=== PATIENT | female | born 1955 | race Caucasian/White ===

== ENCOUNTER → 2017-08-31 | Outpatient (CLI) | payer OTHER ==
--- NOTE | 2017-08-31 09:11 | MM ---
Reason for exam: additional evaluation requested from prior study. Last mammogram was performed 1 year and 5 months ago. History: Patient is postmenopausal and has history of breast cancer at age 50. Excisional biopsy of the left breast, 2006. Mastectomy of the right breast, 2005. Took antineoplastic for 5 years beginning at age 50. Physical Findings: Nurse did not find any significant physical abnormalities on exam. MG Diagnostic Mammo LT w CAD CC and MLO view(s) were taken of the left breast. Prior study comparison: April 04, 2016, left breast MG 3d diag mammo w/cad LT. May 16, 2014, left breast MG diagnostic mammo LT w CAD. The breast tissue is heterogeneously dense. This may lower the sensitivity of mammography. There is no discrete abnormality. These results were verbally communicated with the patient and result sheet given to the patient on 08/31/17. ASSESSMENT: Negative, BI-RAD 1 RECOMMENDATION: Follow-up diagnostic mammogram of the left breast in 1 year.
== END | disposition home or self-care (01) ==
LOC: RADMAMWWP 07:01
PROVIDERS: ATTEND Internal Medicine
DX: Z08 Encounter for follow-up examination after completed treatment for malignant neoplasm (principal); Z85.3 Personal history of malignant neoplasm of breast
CPT/HCPCS: 77065

== ENCOUNTER 2018-02-21 08:27 | Day surgery (SDC) | payer OTHER ==
[2018-02-19 15:20] VITALS: BMI 28.3
[~2018-02-21 08:27] MED LIST: LACTATED RINGERS 1,000 ML IV SCH; LIDOCAINE 1% 20 ML VIAL (10MG/ML) FOR IV START INTRADERMA PRN
[2018-02-21 09:01] VITALS: TEMP 98.4
[2018-02-21 09:06] LABS: Glucose,Whole Blood 133 mg/dL (75-99)
[2018-02-21] MEDS ORDERED: PROPOFOL 10 MG/ML 20 ML VIAL IV ONE (09:21)
--- NOTE | 2018-02-21 09:41 | P.PCN ---
Date of Procedure: 02/21/18 Procedure(s) Performed: BRIEF HISTORY: Patient is a 13-[id number]-year-old pleasant female, scheduled for an elective colonoscopy as a part of screening for colorectal neoplasia. She is family history of colon cancer diagnosed in her mother at age 50. PROCEDURE PERFORMED: Colonoscopy. PREOPERATIVE DIAGNOSIS: Screening for colon cancer/family history of colon cancer. IV sedation per Anesthesia. PROCEDURE: After informed consent was obtained, the patient, was brought into the endoscopy unit. IV sedation was administered by Anesthesia under continuous monitoring. Digital rectal examination was normal. Initially the Olympus CF- 160 flexible video colonoscope was then inserted in the rectum, gradually advanced into the cecum without any difficulty. Careful examination was performed as the scope was gradually being withdrawn. Ileocecal valve and the appendiceal orifice were visualized and appeared normal. Prep was excellent. Mucosa of the cecum, ascending colon, transverse colon, descending colon, sigmoid colon, and rectum appeared normal. Scattered sigmoid diverticulosis seen. Retroflexion was performed in the rectum and no lesions were seen. The patient tolerated the procedure well. IMPRESSION: Normal-appearing colon from rectum to cecum with no evidence of colorectal neoplasia. Scattered sigmoid diverticulosis RECOMMENDATIONS: Findings of this examination were discussed with the patient is well as her family.. She was advised to have a repeat screening colonoscopy in 5 is now because of the family history of colon cancer
[2018-02-21 09:54] LABS: Glucose,Whole Blood 126 mg/dL (75-99)
[2018-02-21 10:05] VITALS: BP 112/61; PULSE 61; RESP 18
== END 2018-02-21 10:31 | disposition home or self-care (01) ==
LOC: ORWHC2ENDO 08:27
PROVIDERS: ATTEND Internal Medicine Gastroenterology
DX: Z12.11 Encounter for screening for malignant neoplasm of colon (principal); K57.30 Diverticulosis of large intestine without perforation or abscess without bleeding; Z80.0 Family history of malignant neoplasm of digestive organs; I10 Essential (primary) hypertension; E78.5 Hyperlipidemia, unspecified; J44.9 Chronic obstructive pulmonary disease, unspecified; E11.9 Type 2 diabetes mellitus without complications; E07.9 Disorder of thyroid, unspecified; K21.9 Gastro-esophageal reflux disease without esophagitis; F17.210 Nicotine dependence, cigarettes, uncomplicated; Z79.84 Long term (current) use of oral hypoglycemic drugs; Z79.82 Long term (current) use of aspirin; Z79.890 Hormone replacement therapy; Z79.899 Other long term (current) drug therapy; Z91.048 Other nonmedicinal substance allergy status
CPT/HCPCS: J2704; G0105

== ENCOUNTER → 2019-12-09 | Outpatient (CLI) | payer MEDICARE, OTHER ==
--- NOTE | 2019-12-10 09:32 | MM ---
Reason for exam: additional evaluation requested from prior study. Last mammogram was performed 2 years and 3 months ago. History: Patient is postmenopausal and has history of breast cancer at age 50. Excisional biopsy of the left breast, 2006. Mastectomy of the right breast, 2005. Took antineoplastic for 5 years beginning at age 50. Physical Findings: Nurse did not find any significant physical abnormalities on exam. MG 3D Diag Mammo W/Cad LT CC and MLO view(s) were taken of the left breast. Prior study comparison: August 31, 2017, left breast MG diagnostic mammo LT w CAD. April 04, 2016, left breast MG 3d diag mammo w/cad LT. The breast tissue is heterogeneously dense. This may lower the sensitivity of mammography. There is no discrete abnormality. No significant new findings when compared with previous films. These results were verbally communicated with the patient and result sheet given to the patient on 12/09/19. ASSESSMENT: Negative, BI-RAD 1 RECOMMENDATION: Follow-up diagnostic mammogram of the left breast in 1 year.
== END | disposition home or self-care (01) ==
LOC: RADMAMWWP 07:02
PROVIDERS: ATTEND Internal Medicine
DX: Z85.3 Personal history of malignant neoplasm of breast (principal)
CPT/HCPCS: 77065; G0279; 77061

== ENCOUNTER → 2019-12-12 | Outpatient (CLI) | payer MEDICARE ==
--- NOTE | 2019-12-12 16:38 | BD ---
EXAMINATION TYPE: Axial Bone Density DATE OF EXAM: 12/12/2019 COMPARISON: 04/05/2016 CLINICAL HISTORY: 64-year-old female disorder bone density and structure Height: 64 Weight: 177.4 FRAX RISK QUESTIONS: Alcohol (3 or more units per day): no Family History (Parent hip fracture): no Glucocorticoids (More than 3mos): no (Ex: prednisone, prednisolone, methylprednisolone, dexamethasone, and hydrocortisone). History of Fracture in Adulthood: no Secondary Osteoporosis: 1. Type 1 Diabetes: no 2. Hyperthyroidism: no 3. Menopause before 45: no 4. Malnutrition: no 5. Chronic liver disease: no Rheumatoid Arthritis: no Current Tobacco Use: yes RISK FACTORS HISTORY OF: Family History of Osteoporosis: no Active: yes Diet low in dairy products/other sources of calcium: yes Postmenopausal woman: age 46 MEDICATIONS: Thyroid Medications: synthroid How Lon years Additional History: EXAM MEASUREMENTS: Bone mineral densitometry was performed using the [employer] System. Bone mineral density as measured about the Lumbar spine is: ----- L1-L4(G/cm2): 1.057 T Score Values are as follows: ----- L2: -0.8 ----- L3: -0.8 ----- L4: -1.3 ----- L1-L4: -1.0 Bone mineral density has: decreased -1.5 % since study of: 04.05.2016 Bone mineral density about the R hip (g/cm2): 0.985 Bone mineral density about the L hip (g/cm2): 0.997 T Score values are as follows: -----R Neck: -0.4 -----L Neck: -0.3 -----R Total: 0.8 -----L Total: 0.6 Bone mineral density has: decreased -1.6 % since study of: 04.05.2016 IMPRESSION: Normal (Values between +1 and -1 indicate normal bone mass). However, note that measurements border on osteopenia at the lumbar spine. Consider repeating this study in 5 years or sooner if there is some new clinical indication. NOTE: T-SCORE=SD OF THE YOUNG ADULT MEAN.
== END | disposition home or self-care (01) ==
LOC: RADBDWWP 15:06
PROVIDERS: ATTEND Internal Medicine
DX: M89.9 Disorder of bone, unspecified (principal)
CPT/HCPCS: 77080

== ENCOUNTER → 2021-02-23 | Outpatient (CLI) | payer MEDICARE ==
--- NOTE | 2021-02-23 15:45 | CTL ---
EXAMINATION TYPE: CT Low Dose Lung DATE OF EXAM ORDERED: 02/23/2021 HISTORY: Long-term tobacco use. . Lung cancer screening CT DLP: 84.[address] CTDI: 2.5 mGy Automated exposure control for dose reduction was used. SCREENING VISIT: Baseline. COMPARISON: None. TECHNIQUE: Low dose computed tomography scan was performed through the chest at 1 mm thick sections a nd reconstructed images in the coronal plane at [address] DIAGNOSTIC QUALITY: Satisfactory FINDINGS: LUNG NODULES: Present, detailed below: Incidental 2 to 3 mm calcified right middle lobe nodule or benign granuloma axial image 199. LUNGS: COPD: Severity: Mild Fibrosis: Severity: Mild to moderate right greater than left biapical Lymph nodes: No greater than 1 cm Other findings: Non- RIGHT PLEURAL SPACE: Effusion: None Calcification: None Thickening: Mild right apical extending posteriorly and inferiorly Pneumothorax: None LEFT PLEURAL SPACE: Effusion: None Calcification: None Thickening: None Pneumothorax: None HEART: Heart Size: Normal Coronary calcification: Moderate Pericardial effusion: None OTHER FINDINGS: Upper abdomen: Small size hiatal hernia. Cholecystectomy clips. Bony thorax: None Supraclavicular region: Asymmetric right thyroid lobe prominencer Other: Send the aorta measures up to 3.8 cm in diameter. Right breast is surgically absent IMPRESSION: No suspicious greater than [address] LUNG RAD AND CT CHEST RECOMMENDATION: Lung-Rad 2 Benign Appearance or Behavior: Continue annual sc reening with LDCT in 12 months. S Modifier (other clinically significant findings): None
== END | disposition home or self-care (01) ==
LOC: RADCTMAIN 15:06
PROVIDERS: ATTEND Internal Medicine
DX: Z12.2 Encounter for screening for malignant neoplasm of respiratory organs (principal); Z72.0 Tobacco use
CPT/HCPCS: 71271

== ENCOUNTER 2021-04-23 06:31 | Day surgery (SDC) | payer MEDICARE ==
[~2021-04-23 06:31] MED LIST changes: -LIDOCAINE 1% 20 ML VIAL (10MG/ML) FOR IV START INTRADERMA PRN
[2021-04-23 06:55] LABS: Glucose,Whole Blood 144 mg/dL (75-99)
[2021-04-23 06:58] VITALS: TEMP 96.8
[2021-04-23] MEDS ORDERED: PROPOFOL 10 MG/ML 20 ML VIAL IV ONE (07:00)
--- NOTE | 2021-04-23 07:23 | P.PCN ---
Date of Procedure: 04/23/21 Procedure(s) Performed: BRIEF HISTORY: Patient is a 65-year-old pleasant white female scheduled for an elective colonoscopy as a part of screening for colon cancer and family history of colon cancer. Her father was diagnosed with colon cancer at age 65. PROCEDURE PERFORMED: Colonoscopy. PREOPERATIVE DIAGNOSIS: Screening for colon cancer/family history of colon cancer. IV sedation per Anesthesia. PROCEDURE: After informed consent was obtained, the patient, was brought into the endoscopy unit. IV sedation was administered by Anesthesia under continuous monitoring. Digital rectal examination was normal. Initially the Olympus CF-160 flexible video colonoscope was then inserted in the rectum, gradually advanced into the cecum without any difficulty. Careful examination was performed as the scope was gradually being withdrawn. Ileocecal valve and the appendiceal orifice were visualized and appeared normal. Prep was excellent. Mucosa of the cecum, ascending colon, transverse colon, descending colon, sigmoid colon, and rectum appeared normal. Retroflexion was performed in the rectum and no lesions were seen. The patient tolerated the procedure well. IMPRESSION: Normal-appearing colon from rectum to cecum with no evidence of colitis or colorectal neoplasia . RECOMMENDATIONS: Findings of this examination were discussed with the patient as well as a family. She was advised to have a repeat screening colonoscopy in 5 years because of family history of colon cancer
[2021-04-23 07:38] VITALS: BP 109/68; PULSE 51; RESP 14
== END 2021-04-23 08:13 | disposition home or self-care (01) ==
LOC: ORWHC2ENDO 06:31
PROVIDERS: ATTEND Internal Medicine Gastroenterology
DX: Z12.11 Encounter for screening for malignant neoplasm of colon (principal); Z80.0 Family history of malignant neoplasm of digestive organs
CPT/HCPCS: 45378; J2704

== ENCOUNTER → 2021-08-03 | Outpatient (CLI) | payer MEDICARE ==
--- NOTE | 2021-08-03 11:58 | MM ---
Reason for exam: additional evaluation requested from prior study. Last mammogram was performed 1 year and 8 months ago. History: Patient is postmenopausal and has history of breast cancer at age 50. Excisional biopsy of the left breast, 2006. Mastectomy of the right breast, 2005. Took antineoplastic for 5 years beginning at age 50. Physical Findings: A clinical breast exam by your physician is recommended on an annual basis and results should be correlated with mammographic findings. MG 3D Diag Mammo W/Cad LT CC and MLO view(s) were taken of the left breast. Prior study comparison: December 09, 2019, left breast MG 3d diag mammo w/cad LT. August 31, 2017, left breast MG diagnostic mammo LT w CAD. There are scattered fibroglandular densities. There are benign appearing round, vascular calcifications in the left breast. There is no discrete abnormality. These results were verbally communicated with the patient and result sheet given to the patient on 08/03/21. ASSESSMENT: Benign, BI-RAD 2 RECOMMENDATION: Follow-up diagnostic mammogram of the left breast in 1 year.
== END | disposition home or self-care (01) ==
LOC: RADMAMWWP 09:36
PROVIDERS: ATTEND Internal Medicine
DX: R92.8 Other abnormal and inconclusive findings on diagnostic imaging of breast (principal); Z86.000 Personal history of in-situ neoplasm of breast; Z78.0 Asymptomatic menopausal state
CPT/HCPCS: 77065; G0279; 77061

== ENCOUNTER → 2021-11-02 | Outpatient (CLI) | payer MEDICARE ==
--- NOTE | 2021-11-02 15:41 | US ---
EXAMINATION TYPE: US thyroid st tissue head/neck DATE OF EXAM: 11/02/2021 COMPARISON: NONE CLINICAL HISTORY: 66-year-old female E04.9 Thyroid goiter. Patient with a history of left thyroidecto my, on meds for thyroid TECHNIQUE: Multiple sonographic images of the thyroid gland are obtained. FINDINGS: GLAND SIZE: Right Lobe: 4.8 x 1.3 x 2.0 cm Overall Parenchyma: heterogenous Left Lobe: Surgically absent Isthmus Thickness: 0.5 cm NODULES RIGHT: # of nodules measured on right: 0 LEFT: surgically absent, no obvious residual tissue seen on today's exam ISTHMUS: # of nodules measured in the isthmus: 0 Bilateral neck scanned, no evidence of lymphadenopathy. IMPRESSION: 1. Status post left thyroidectomy. 2. The remainder shows heterogeneous glandular parenchyma, likely relating to goiter. No discrete nod ules.
== END | disposition home or self-care (01) ==
LOC: RADUSWWP 12:28
PROVIDERS: ATTEND Internal Medicine
DX: E89.0 Postprocedural hypothyroidism (principal)
CPT/HCPCS: 76536

== ENCOUNTER 2022-07-03 04:14 | Observation (INO) | payer MEDICARE ==
[2022-07-03] MEDS ORDERED: SODIUM CHLORIDE 0.9% 500 ML 500 ML IV STA (04:25)
--- NOTE | 2022-07-03 04:26 | ED ---
Fall HPI - General Stated Complaint: SYNCOPE Time Seen by Provider: 07/03/22 04:25 Source: RN notes reviewed, old records reviewed Limitations: no limitations - History of Present Illness Initial Comments: This is a 67-year-old female DF for evaluation. Today she presents after a fall from standing, this was proceeded by a syncopal event which occurred when she got out of bed this morning. Patient states he did give Her to give her some of his sleeping medication prior to her going to bed. 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 Witnessed: no Place Fall Occurred: home Loss of Consciousness: none Prolonged Down Time?: no Symptoms Prior to Fall: none Location: head, face Severity: mild Severity scale (1-10): 2 Context: tripped/slipped, history of frequent falls, other (Syncope) Associated Symptoms: denies - Related Data Home Medications Medication Instructions Recorded Confirmed Atorvastatin [Lipitor] 10 mg PO HS 11/07/13 04/21/21 PARoxetine HCL [Paxil] 20 mg PO HS 11/07/13 04/21/21 atenoloL [Tenormin] 25 mg PO HS 11/07/13 04/21/21 metFORMIN HCL [Glucophage] 500 mg PO BID 02/19/18 04/21/21 Levothyroxine Sodium 112 mcg PO DAILY 04/21/21 04/21/21 Allergies Allergy/AdvReac Type Severity Reaction Status Date / Time adhesive Allergy Unknown Rash/Hives Verified 04/23/21 06:46 Review of Systems ROS Statement: Those systems with pertinent positive or pertinent negative responses have been documented in the HPI. ROS Other: All systems not noted in ROS Statement are negative. Past Medical History Past Medical History: Cancer, Diabetes Mellitus, GERD/Reflux, Hyperlipidemia, Hypertension, Osteoarthritis (OA), Thyroid Disorder Additional Past Medical History / Comment(s): HX BREAST CANCER ,VERTIGO,VARICOSE VEINS, HX OF GOITER WITH SURGERY., HX THYROID NODULE. History of Any Multi-Drug Resistant Organisms: None Reported Past Surgical History: Breast Surgery, Section, Cholecystectomy, Tubal Ligation Additional Past Surgical History / Comment(s): RT MASTECTOMY, GOITER REMOVED. COLONOSCOPY Past Anesthesia/Blood Transfusion Reactions: Postoperative Nausea & Vomiting (PONV) Smoking Status: Current every day smoker - Past Family History Mother Family Medical History: Cancer, CVA/TIA Additional Family Medical History / Comment(s): THROAT CA Father Family Medical History: Cancer Additional Family Medical History / Comment(s): CA COLON, PANCREATIC CANCER Brother(s) Family Medical History: Cancer Additional Family Medical History / Comment(s): BRAIN CA General Exam General appearance: alert, in no apparent distress Head exam: Present: normocephalic, normal inspection. Absent: atraumatic (Small laceration above left eyelid) Eye exam: Present: normal appearance, PERRL, EOMI. Absent: scleral icterus, conjunctival injection, periorbital swelling ENT exam: Present: normal exam, mucous membranes moist Neck exam: Present: normal inspection. Absent: tenderness, meningismus, lymphadenopathy Respiratory exam: Present: normal lung sounds bilaterally. Absent: respiratory distress, wheezes, rales, rhonchi, stridor Cardiovascular Exam: Present: regular rate, normal rhythm, normal heart sounds. Absent: systolic murmur, diastolic murmur, rubs, gallop, clicks GI/Abdominal exam: Present: soft, normal bowel sounds. Absent: distended, tenderness, guarding, rebound, rigid Extremities exam: Present: normal inspection, full ROM, normal capillary refill. Absent: tenderness, pedal edema, joint swelling, calf tenderness Back exam: Present: normal inspection Neurological exam: Present: alert, oriented X3, CN II-XII intact Psychiatric exam: Present: normal affect, normal mood Skin exam: Present: warm, dry, intact, normal color. Absent: rash Course Vital Signs 07/03/22 07/03/22 07/03/22 04:39 04:45 05:00 Pulse Rate 49 L 46 L Pulse Rate [ 48 L Boat Deckhand ] Respiratory 16 16 Rate Blood Pressure 102/58 113/59 O2 Sat by Pulse 98 98 Oximetry 07/03/22 06:00 Pulse Rate 51 L Pulse Rate [ Boat Deckhand ] Respiratory 16 Rate Blood Pressure 142/70 O2 Sat by Pulse 98 Oximetry - Reevaluation(s) Reevaluation #1: 07/03/22 07:44 Medical records reviewed Reevaluation #2: 07/03/22 07:44 patient has no recurrent syncope here in the ER Reevaluation #3: 07/03/22 07:44 Patient informed results questions are answered Reevaluation #4: 07/03/22 07:45 Differential Syncope: Valvular disease, hypertrophic cardiomyopathy, pulmonary embolism, tamponade, tachycardia, bradycardia, MS, hypovolemia, hemorrhage, dissection, anemia, intracranial hemorrhage, seizure, hypoglycemia, carbon monoxide poisoning, this is not meant to be an all-inclusive list. Reevaluation #5: 07/03/22 07:45 Was pt. sent in by a medical professional or institution? @ -no Did you speak to anyone other than the patient for history? @ -no Did you review nursing and triage notes? @ -agree Were old charts reviewed? @ -no prior Differential Diagnosis? @ -no prior EKG interpreted by me (3pts min.)? @ -[none] X-rays interpreted by me (1pt min.)? @ -[none] CT interpreted by me (1pt min.)? @ -[none] U/S interpreted by me (1pt. min.)? @ -[none] What testing was considered but not performed? (CT, X-rays, U/S, labs)? Why? @ no What meds were considered but not given? Why? @ -[none] Did you discuss the management of the patient with other professionals? @ -no Did you reconcile home meds? @ -[none] Was smoking cessation discussed for >3mins.? @ -[none] Was critical care preformed (if so, how long)? @ -[none] Were there social determinants of health that impacted care today? How? (Homelessness, low income, unemployed, alcoholism, drug addiction, transportation, low edu. Level, literacy, decrease access to med. care, correction, rehab)? @ -no Was there de-escalatio ] Undiagnosed new problem with uncertain prognosis? @ -[none] Drug Therapy requiring intensive monitoring for toxicity (Heparin, Nitro, Insulin, Cardizem)? @ -[none] Were any procedures done? @ -[none] Diagnosis/symptom? @ -[default] Acute, or Chronic, or Acute on Chronic? @ -[default] Uncomplicated (without systemic symptoms) or Complicated (systemic symptoms)? @ -[default] Side effects of treatment? @ -[none] Exacerbation, Progression, or Severe Exacerbation] @ -[no] Poses a threat to life or bodily function? @ -[no] - Consultations Consultation #1: Spoke with admitting physicians who agree to admit Procedures - Laceration Laceration #1 Consent Obtained: verbal consent Indication: laceration Site: face Size (cm): 2 Description: linear Technique: simple, interrupted (Laceration is repaired with Dermabond) Patient Tolerated Procedure: well Medical Decision Making - Medical Decision Making 67 female to the emergency department for evaluation at this time patient can be admitted for further evaluation management, regarding syncopal event, laceration above left eye is. - Lab Data Result diagrams: 07/03/22 04:43 07/03/22 04:43 Lab Results 07/03/22 07/03/22 07/03/22 Range/Units 04:43 04:43 04:43 WBC 8.8 (3.8-10.6) k/uL RBC 4.06 (3.80-5.40) m/uL Hgb 12.4 (11.4-16.0) gm/dL Hct 37.3 (34.0-46.0) % MCV 91.7 (80.0-100.0) fL MCH 30.6 (25.0-35.0) pg MCHC 33.4 (31.0-37.0) g/dL RDW 12.6 (11.5-15.5) % Plt Count 232 (150-450) k/uL MPV 7.3 Neutrophils % 45 % Lymphocytes % 43 % Monocytes % 6 % Eosinophils % 3 % Basophils % 1 % Neutrophils # 4.0 (1.3-7.7) k/uL Lymphocytes # 3.8 (1.0-4.8) k/uL Monocytes # 0.5 (0-1.0) k/uL Eosinophils # 0.3 (0-0.7) k/uL Basophils # 0.1 (0-0.2) k/uL PT 9.9 (9.0-12.0) sec INR 0.9 (<1.2) APTT 22.0 (22.0-30.0) sec Sodium 137 (137-145) mmol/L Potassium 3.9 (3.5-5.1) mmol/L Chloride 105 (98-107) mmol/L Carbon Dioxide 28 (22-30) mmol/L Anion Gap 4 mmol/L BUN 10 (7-17) mg/dL Creatinine 1.02 (0.52-1.04) mg/dL Est GFR (CKD-EPI)AfAm 65 (>60 ml/min/1.73 sqM) Est GFR (CKD-EPI)NonAf 57 (>60 ml/min/1.73 sqM) Glucose 158 H (74-99) mg/dL Plasma Lactic Acid Eron (0.7-2.0) mmol/L Calcium 8.9 (8.4-10.2) mg/dL Phosphorus 4.2 (2.5-4.5) mg/dL Magnesium 1.6 (1.6-2.3) mg/dL Total Bilirubin 0.2 (0.2-1.3) mg/dL AST 21 (14-36) U/L ALT 19 (4-34) U/L Alkaline Phosphatase 98 (38-126) U/L Troponin I (0.000-0.034) ng/mL Total Protein 6.4 (6.3-8.2) g/dL Albumin 3.8 (3.5-5.0) g/dL 07/03/22 07/03/22 Range/Units 04:43 04:43 WBC (3.8-10.6) k/uL RBC (3.80-5.40) m/uL Hgb (11.4-16.0) gm/dL Hct (34.0-46.0) % MCV (80.0-100.0) fL MCH (25.0-35.0) pg MCHC (31.0-37.0) g/dL RDW (11.5-15.5) % Plt Count (150-450) k/uL MPV Neutrophils % % Lymphocytes % % Monocytes % % Eosinophils % % Basophils % % Neutrophils # (1.3-7.7) k/uL Lymphocytes # (1.0-4.8) k/uL Monocytes # (0-1.0) k/uL Eosinophils # (0-0.7) k/uL Basophils # (0-0.2) k/uL PT (9.0-12.0) sec INR (<1.2) APTT (22.0-30.0) sec Sodium (137-145) mmol/L Potassium (3.5-5.1) mmol/L Chloride (98-107) mmol/L Carbon Dioxide (22-30) mmol/L Anion Gap mmol/L BUN (7-17) mg/dL Creatinine (0.52-1.04) mg/dL Est GFR (CKD-EPI)AfAm (>60 ml/min/1.73 sqM) Est GFR (CKD-EPI)NonAf (>60 ml/min/1.73 sqM) Glucose (74-99) mg/dL Plasma Lactic Acid Eron 1.3 (0.7-2.0) mmol/L Calcium (8.4-10.2) mg/dL Phosphorus (2.5-4.5) mg/dL Magnesium (1.6-2.3) mg/dL Total Bilirubin (0.2-1.3) mg/dL AST (14-36) U/L ALT (4-34) U/L Alkaline Phosphatase (38-126) U/L Troponin I <0.012 (0.000-0.034) ng/mL Total Protein (6.3-8.2) g/dL Albumin (3.5-5.0) g/dL - Radiology Data Radiology results: report reviewed (CT brain C-spine chest x-ray negative for acute disease), image reviewed Disposition Clinical Impression: Dehydration, Vasovagal syncope, Syncope Disposition: HOME SELF-CARE Condition: Fair Is patient prescribed a controlled substance at d/c from ED?: No Time of Disposition: 06:35
[2022-07-03 04:57] LABS: Basophils # (A) 0.1 k/uL (0-0.2); Basophils % (A) 1 %; Eosinophils # (A) 0.3 k/uL (0-0.7); Eosinophils % (A) 3 %; HCT 37.3 % (34.0-46.0); HGB 12.4 gm/dL (11.4-16.0); Lymphocytes # (A) 3.8 k/uL (1.0-4.8); Lymphocytes % (A) 43 %; MCH 30.6 pg (25.0-35.0); MCHC 33.4 g/dL (31.0-37.0); MCV 91.7 fL (80.0-100.0); Mean Platelet Volume 7.3; Monocytes # (A) 0.5 k/uL (0-1.0); Monocytes % (A) 6 %; Neutrophils % (A) 45 %; Platelet Count 232 k/uL (150-450); RBC 4.06 m/uL (3.80-5.40); RDW 12.6 % (11.5-15.5); WBC 8.8 k/uL (3.8-10.6)
[2022-07-03 05:18] LABS: INR 0.9 (<1.2); Prothrombin Time 9.9 sec (9.0-12.0)
[2022-07-03 05:19] LABS: Albumin 3.8 g/dL (3.5-5.0); Calcium 8.9 mg/dL (8.4-10.2); Magnesium 1.6 mg/dL (1.6-2.3); Phosphorus 4.2 mg/dL (2.5-4.5); Potassium 3.9 mmol/L (3.5-5.1); Total Bilirubin 0.2 mg/dL (0.2-1.3); Total Protein 6.4 g/dL (6.3-8.2)
--- NOTE | 2022-07-03 05:22 | CT ---
EXAMINATION TYPE: CT brain nikiine wo con DATE OF EXAM: 07/03/2022 COMPARISON: 09/12/2012 HISTORY: FALL CT DLP: 1370.7 mGycm Automated exposure control for dose reduction was used. Images obtained of the brain and cervical spine with no contrast. There is mild cerebral atrophy. There is no mass effect or midline shift. No sign of intracranial hem orrhage. Calvarium is intact. There is normal aeration of the mastoid sinuses. Skull base is intact. The cervical vertebra have fairly normal alignment. There is degenerative disc space narrowing at C5- C6 with spurring of the endplates. Posterior elements are intact. There is hypertrophic mild facet ar thropathy on the left side at C3-4 and C4-5. Prevertebral soft tissues are intact. No compression fra cture. IMPRESSION: Some cerebral cortical atrophy has progressed compared to old exam. No acute intracranial abnormality . Spondylosis in the cervical spine mainly at C5-6. No fracture. Mild scarring noted at the lung apices .
--- NOTE | 2022-07-03 05:26 | XR ---
EXAMINATION TYPE: XR chest 1V DATE OF EXAM: 07/03/2022 COMPARISON: 09/12/2012 HISTORY: Pain TECHNIQUE: Single view FINDINGS: Heart is normal. Lungs are clear of infiltrate. No heart failure. There are no hilar masses . No pleural effusion. There are chest leads. IMPRESSION: No active cardiopulmonary disease. Normal heart. No change.
[2022-07-03] MEDS ORDERED: ONDANSETRON 4 MG/2 ML VIAL IVP PRN (06:34)
[2022-07-03] MEDS ORDERED: NALOXONE 0.4 MG/ML 1 ML VIAL IV PRN (06:34)
[2022-07-03] MEDS ORDERED: TOPICAL SKIN ADHESIVE 1 EACH AMP TOPICAL STA (06:35)
[2022-07-03] MEDS: SODIUM CHLORIDE 0.9% 1,000 ML IV SCH ×3 (09:28→22:41)
--- NOTE | 2022-07-03 13:49 | P.HPIM ---
History of Present Illness H&P Date: 07/03/22 Patient is a 67-year-old female with history of hypertension, hypothyroidism, depression, and insomnia presenting with syncope and collapse. She claims that she was in her usual state of health. She went to bed at around 1:00 had difficulty sleeping. She ended up taking half a tablet of her 's trazodone. She woke up at 3 AM and felt lightheaded, went to the bathroom, re turned back to the bed continue to feel lightheaded, went to pickup her in the living room and had a syncopal episode. She does not know how she fell, but woke up with some blood around her left forehead. Her did not notice any seizure-like activity. She denies any chest pain, shortness of breath, abdominal pain, nausea, vomiting, diarrhea, constipation, recent fevers, chills, recent travel, or sick contacts. She denies ever having similar symptoms. In the ED, patient has been slightly bradycardic, rest of the vital signs otherwise within normal limits. EKG showed sinus bradycardia. CT head and CT cervical spine did not show any acute fractures or acute process. Chest x-ray showed no acute cardiopulmonary issues. Laboratory workup was unremarkable. Lactic acid was 1.3. Troponin negative. She had laceration repair superior to her left eye. Patient seen and examined at bedside. Pertinent positives and negatives as discussed in HPI, a complete review of syst ems was performed and all other systems are negative. Vital signs reviewed General: nontoxic, no distress, appears at stated age Derm: warm, dry Head: Laceration on left forehead, normocephalic, symmetric Eyes: EOMI, no lid lag, anicteric sclera, pupils equal round reactive to light ENT: Nose and ears atraumatic Neck: No thyromegaly, supple Mouth: no lip lesion, mucus membranes moist Cardiovascular: S1S2 reg, no murmur, no edema Lungs: clear to auscultation bilateral, no rhonchi, no rales, no wheeze, no accessory muscle use Abdominal: soft, nontender to palpation, no guarding, no appreciable organomegaly Ext: no gross muscle atrophy, muscle strength muscle strength 5 out of 5 in all 4 extremities, no contractures Neuro: CN II-XII grossly intact Psych: Alert, oriented, appropriate affect Assessment/Plan: Syncope and collapse Sinus bradycardia - Orthostatic vitals negative, patient had already gotten some fluids - Possibly secondary to trazodone use - Echocardiogram pending - Telemetry - Troponin negative Forehead laceration - Closed by ER Chronic medical problems: Hypertension dyslipidemia Hypothyroidism Depression - Continue home medications The patient is admitted with an anticipated less than 2 midnight stay for evaluation of syncope. Surrogate decision-maker: CODE STATUS: Full code DVT prophylaxis: Lovenox Anticipated discharge date: Likely tomorrow Anticipated discharge place: Home A total of 55 minutes was spent on the care of this complex patient more than 50% of the time was spent in counseling and care coordination. Past Medical History Past Medical History: Cancer, Diabetes Mellitus, GERD/Reflux, Hyperlipidemia, Hypertension, Osteoarthritis (OA), Thyroid Disorder Additional Past Medical History / Comment(s): HX BREAST CANCER ,VERTIGO,VARICOSE VEINS, HX OF GOITER WITH SURGERY., HX THYROID NODULE. History of Any Multi-Drug Resistant Organisms: None Reported Past Surgical History: Breast Surgery, Section, Cholecystectomy, Tubal Ligation Additional Past Surgical History / Comment(s): RT MASTECTOMY, GOITER REMOVED. COLONOSCOPY Past Anesthesia/Blood Transfusion Reactions: Postoperative Nausea & Vomiting (PONV) Past Psychological History: Anxiety, Depression Smoking Status: Current every day smoker Past Alcohol Use History: Rare Additional Past Alcohol Use History / Comment(s): SMOKES 1 PPD., SINCE AGE 14 Past Drug Use History: None Reported - Past Family History Mother Family Medical History: Cancer, CVA/TIA Additional Family Medical History / Comment(s): THROAT CA Father Family Medical History: Cancer Additional Family Medical History / Comment(s): CA COLON, PANCREATIC CANCER Brother(s) Family Medical History: Cancer Additional Family Medical History / Comment(s): BRAIN CA Medications and Allergies Home Medications Medication Instructions Recorded Confirmed Type Atorvastatin [Lipitor] 10 mg PO DAILY 11/07/13 07/03/22 History atenoloL [Tenormin] 25 mg PO DAILY 11/07/13 07/03/22 History metFORMIN HCL [Glucophage] 1,000 mg PO DAILY 02/19/18 07/03/22 History Levothyroxine Sodium 112 mcg PO DAILY 04/21/21 07/03/22 History PARoxetine [Paxil] 20 mg PO DAILY 07/03/22 07/03/22 History metFORMIN HCL [Glucophage] 500 mg PO HS 07/03/22 07/03/22 History Allergies Allergy/AdvReac Type Severity Reaction Status Date / Time adhesive Allergy Unknown Rash/Hives Verified 07/03/22 10:40 Physical Exam Vitals: Vital Signs Temp Pulse Pulse Pulse Pulse Pulse Resp 07/03/22 07:15 98.1 F 52 L 16 07/03/22 07:00 98.6 F 53 L 54 L 75 16 07/03/22 06:00 51 L 16 07/03/22 05:00 46 L 16 07/03/22 04:45 48 L 07/03/22 04:39 49 L 16 BP BP BP BP Pulse Ox 07/03/22 07:15 146/76 99 07/03/22 07:00 158/71 163/82 153/80 97 07/03/22 06:00 142/70 98 07/03/22 05:00 113/59 98 07/03/22 04:45 07/03/22 04:39 102/58 98 Intake and Output 07/02/22 07/03/22 07/03/22 22:59 06:59 14:59 Other: Voiding Method Toilet Weight 81.193 kg 81.193 kg Results CBC & Chem 7: 07/03/22 04:43 07/03/22 04:43 Labs: Abnormal Lab Results - Last 24 Hours (Table) 07/03/22 Range/Units 04:43 Glucose 158 H (74-99) mg/dL Thrombosis Risk Factor Assmnt - Choose All That Apply Each Factor Represents 1 point: Obesity (BMI >25), Varicose veins Each Risk Factor Represents 2 Points: Age 61-74 years Thrombosis Risk Factor Assessment Total Risk Factor Score: 4 Thrombosis Risk Factor Assessment Level: Moderate Risk
[2022-07-03] MEDS: ACETAMINOPHEN TAB 325 MG TAB PO PRN ×2 (14:00→21:15)
[2022-07-03] MEDS ORDERED: DEXTROSE 50% SYRINGE 50 ML IVP PRN ×2 (18:25)
[2022-07-03 20:55] LABS: Glucose,Whole Blood 197 mg/dL (70-110)
[2022-07-03] MEDS ORDERED: INSULIN ASPART (NovoLOG) 100 UNIT/ML VIAL SQ SCH (21:00)
[2022-07-03] MEDS: INSULIN ASPART (NovoLOG) 100 UNIT/ML VIAL SQ SCH (21:02)
[2022-07-04] MEDS: INSULIN ASPART (NovoLOG) 100 UNIT/ML VIAL SQ SCH ×4 (05:42→21:08)
[2022-07-04 05:43] LABS: Glucose,Whole Blood 124 mg/dL (70-110)
[2022-07-04] MEDS: ENOXAPARIN 40 MG/0.4 ML SYRINGE SQ SCH (07:46)
[2022-07-04] MEDS: ATORVASTATIN 10 MG TAB PO SCH (07:46)
[2022-07-04] MEDS: atenoloL 25 MG TAB PO SCH (07:47)
[2022-07-04] MEDS: SODIUM CHLORIDE 0.9% 1,000 ML IV SCH ×3 (07:48→21:22)
[2022-07-04] MEDS: PARoxetine 20 MG TAB PO SCH (08:38)
[2022-07-04] MEDS: LEVOTHYROXINE 112 MCG TAB PO SCH (08:38)
[2022-07-04] MEDS: ACETAMINOPHEN TAB 325 MG TAB PO PRN ×2 (09:29→21:20)
[2022-07-04 12:46] LABS: Glucose,Whole Blood 255 mg/dL (70-110)
[2022-07-04] MEDS: NICOTINE 21MG/24HR PATCH TRANSDERM SCH (13:02)
--- NOTE | 2022-07-04 13:06 | P.PN ---
Subjective Progress Note Date: 07/04/22 Hospital Course: 67-year-old female with history of hypertension, hypothyroidism, depression, and insomnia presenting with syncope and collapse. In the ED, patient has been slightly bradycardic, rest of the vital signs otherwise within normal limits. EKG showed sinus bradycardia. CT head and CT cervical spine did not show any acute fractures or acute process. Chest x-ray showed no acute cardiopulmonary issues. Laboratory workup was unremarkable. Lactic acid was 1.3. Troponin n egative. She had laceration repair superior to her left eye. Echo pending. Subjective: Patient seen and examined at bedside. No acute events overnight. She denies any chest pain, shortness of breath, abdominal pain. She denies any further episodes of syncope/presyncope. Pertinent positives and negatives as discussed above, a complete review of systems was performed and all other systems are negative. Vitals Signs Reviewed. General: nontoxic, no distress, appears at stated age Derm: warm, dry Head: Laceration on left forehead, normocephalic, symmetric Eyes: EOMI, no lid lag, anicteric sclera, pupils equal round reactive to light ENT: Nose and ears atraumatic Neck: No thyromegaly, supple Mouth: no lip lesion, mucus membranes moist Cardiovascular: S1S2 reg, no murmur, no edema Lungs: clear to auscultation bilateral, no rhonchi, no rales, no wheeze, no accessory muscle use Abdominal: soft, nontender to palpation, no guarding, no appreciable organomegaly Ext: no gross muscle atrophy, muscle strength muscle strength 5 out of 5 in all 4 extremities, no contractures Neuro: CN II-XII grossly intact Psych: Alert, oriented, appropriate affect Assessment and Plan: Syncope and collapse Sinus bradycardia - Orthostatic vitals negative, patient had already gotten some fluids - Possibly secondary to trazodone use - Echocardiogram pending - Telemetry reviewed, no events - Troponin negative Forehead laceration - Closed by ER Diabetes - Sliding scale insulin -Hold metformin Chronic medical problems: Hypertension dyslipidemia Hypothyroidism Depression - Continue home medications DVT ppx: Lovenox Code status: Full code Anticipated discharge place: Home Anticipated discharge time: Likely tomorrow Objective - Vital Signs Vital signs: Vital Signs Temp 98.0 F 07/04/22 07:00 Pulse 60 07/04/22 07:00 Resp 18 07/04/22 07:00 BP 173/81 07/04/22 07:00 Pulse Ox 94 L 07/04/22 07:00 FiO2 Intake & Output 07/03/22 07/04/22 07/04/22 18:59 06:59 18:59 Intake Total 120 Balance 120 Weight 81.193 kg Intake: Oral 120 Other: Voiding Method Toilet Toilet # Voids 2 - Labs CBC & Chem 7: 07/03/22 04:43 07/03/22 04:43 Labs: Abnormal Lab Results - Last 24 Hours (Table) 07/03/22 07/03/22 07/04/22 Range/Units 04:43 20:54 05:41 POC Glucose (mg/dL) 197 H 124 H (70-110) mg/dL Hemoglobin A1c 8.0 H (0.0-6.0) % 07/04/22 Range/Units 12:44 POC Glucose (mg/dL) 255 H (70-110) mg/dL Hemoglobin A1c (0.0-6.0) %
[2022-07-04 17:15] LABS: Glucose,Whole Blood 94 mg/dL (70-110)
[2022-07-04 21:07] LABS: Glucose,Whole Blood 152 mg/dL (70-110)
[2022-07-04 21:23] VITALS: RESP 18
[2022-07-05] MEDS: SODIUM CHLORIDE 0.9% 1,000 ML IV SCH (06:05)
[2022-07-05 06:57] LABS: Glucose,Whole Blood 130 mg/dL (70-110)
[2022-07-05] MEDS: INSULIN ASPART (NovoLOG) 100 UNIT/ML VIAL SQ SCH (06:57)
[2022-07-05 07:24] VITALS: BP 175/84; PULSE 67; TEMP 97.4
--- NOTE | 2022-07-05 08:52 | CA ---
Transthoracic Echo Report Name: Pearl Gee Age: 67 Gender: F : 1955 Exam Date: 07/04/2022 12:51 Exam Location: [facility] Ht (in): 64 Wt (lb): 179 Ordering Physician: Alex Farrar MD Attending/Referring Phys: Impregnator Operator Fe Jacobson RDCS Procedure CPT: Indications: SYNCOPE AND COLLAPSE Cardiac Hx: Technical Quality: Fair Contrast 1: Total Dose (mL): Contrast 2: Total Dose (mL): MEASUREMENTS (Male / Female) Normal Values 2D ECHO LV Diastolic Diameter PLAX 4.4 cm 4.2 - 5.9 / 3.9 - 5.3 cm LV Systolic Diameter PLAX 2.4 cm IVS Diastolic Thickness 1.2 cm 0.6 - 1.0 / 0.6 - 0.9 cm LVPW Diastolic Thickness 1.0 cm 0.6 - 1.0 / 0.6 - 0.9 cm LV Relative Wall Thickness 0.5 RV Internal Dim ED PLAX 4.0 cm LA Volume 83.4 cm??? 18 - 58 / 22 - 52 cm??? M-MODE Aortic Root Diameter MM 2.2 cm LA Systolic Diameter MM 4.2 cm LA Ao Ratio MM 1.9 AV Cusp Separation MM 1.8 cm DOPPLER AV Peak Velocity 140.4 cm/s AV Peak Gradient 7.9 mmHg AV Mean Velocity 93.4 cm/s AV Mean Gradient 4.0 mmHg AV Velocity Time Integral 33.4 cm LVOT Peak Velocity 90.0 cm/s LVOT Peak Gradient 3.2 mmHg MV Area PHT 3.2 cm??? Mitral E Point Velocity 95.6 cm/s Mitral A Point Velocity 50.4 cm/s Mitral E to A Ratio 1.9 MV Deceleration Time 235.5 ms TR Peak Velocity 237.0 cm/s TR Peak Gradient 22.5 mmHg Right Ventricular Systolic Press 26.9 mmHg FINDINGS Left Ventricle Mildly increased septal wall thickness. Mildly increased posterior wall thickness. Normal left ventricular systolic function with no obvious regional wall motion abnormalities. Left ventricular ejection fraction is estimated at 55-60 %. Right Ventricle Normal right ventricular size and function. Right ventricular systolic pressure within normal limits. Right Atrium Normal right atrial size. Left Atrium Severely increased left atrial volume. Mildly increased left atrial area. Mitral Valve Structurally normal mitral valve. Mitral annular calcification. Moderate mitral regurgitation Aortic Valve Trileaflet aortic valve. No aortic valve stenosis or regurgitation. Aortic valve sclerosis. Tricuspid Valve Mild tricuspid regurgitation. Pulmonic Valve Trace pulmonic regurgitation. Pericardium No pericardial effusion. Aorta Normal size aortic root and proximal ascending aorta. CONCLUSIONS Normal biventricular dimension and systolic function Moderate mitral regurgitation Previewed by: Dr. Navin Villalba MD (Electronically Signed) Final Date: 05 July 2022 08:51
[2022-07-05] MEDS: ENOXAPARIN 40 MG/0.4 ML SYRINGE SQ SCH (09:29)
[2022-07-05] MEDS: NICOTINE 21MG/24HR PATCH TRANSDERM SCH (09:29)
[2022-07-05] MEDS: atenoloL 25 MG TAB PO SCH (09:29)
[2022-07-05] MEDS: LEVOTHYROXINE 112 MCG TAB PO SCH (09:29)
[2022-07-05] MEDS: ATORVASTATIN 10 MG TAB PO SCH (09:29)
[2022-07-05] MEDS: PARoxetine 20 MG TAB PO SCH (09:29)
--- NOTE | 2022-07-05 09:42 | US ---
EXAMINATION TYPE: US venous doppler duplex UE LT DATE OF EXAM: 07/05/2022 COMPARISON: NONE CLINICAL HISTORY: edema. Edema within left arm. Patient had IV taken out from left hand last night. N o hx of DVT. SIDE PERFORMED: Left Arm Left Arm: No evidence of DVT. Left subclavian vein appears small in size. IMPRESSION: No evidence of deep vein thrombosis of the left upper extremity.
[2022-07-05] MEDS: ACETAMINOPHEN TAB 325 MG TAB PO PRN (11:01)
--- NOTE | 2022-07-05 14:16 | P.DS ---
Providers Date of admission: 07/03/22 06:35 Expected date of discharge: 07/05/22 Attending physician: Antione Douglas MD Primary care physician: Meng Joe MD Hospital Course: Discharge Diagnosis: Syncope and collapse Sinus bradycardia Regurgitation Forehead laceration Diabetes Hypertension Dyslipidemia Hypothyroidism Depression Hospital Course: 67-year-old female with history of hypertension, hypothyroidism, depression, and insomnia presenting with syncope and collapse. In the ED, patient has been slightly bradycardic, rest of the vital signs otherwise within normal limits. EKG showed sinus bradycardia. CT head and CT cervical spine did not show any acute fractures or acute process. Chest x-ray showed no acute cardiopulmonary issues. Laboratory workup was unremarkable. Lactic acid was 1.3. Troponin negative. She had laceration repaired superior to her left eye. Syncope likely in the setting of taking her 's trazodone at night. No events on telemetry. Echo showed normal LV function, left atrial enlargement, mitral regurgitation. She also had IV infiltration on the left hand prior to discharge, left upper extremity Doppler negative for DVT. Recommended to elevate her left arm and use warm compress. Patient seen and examined at bedside. Vital signs reviewed and stable. General: nontoxic, no distress, appears at stated age Derm: warm, dry Head: atraumatic, normocephalic, symmetric Eyes: EOMI, no lid lag, anicteric sclera Mouth: no lip lesion, mucus membranes moist Cardiovascular: S1S2 reg, no murmur Lungs: CTA bilateral, no rhonchi, no rales , no accessory muscle use Abdominal: soft, nontender to palpation, no guarding, no appreciable organomegaly Ext: no gross muscle atrophy, no edema, no contractures Neuro: CN II-XI grossly intact, no focal neuro deficits Psych: Alert, oriented, appropriate affect A total of 37 minutes of time were spent preparing this complex discharge summary. Patient was discharged on 07/05/22 at 10:34. Patient Condition at Discharge: Stable Plan - Discharge Summary New Discharge Prescriptions: Continue Atorvastatin [Lipitor] 10 mg PO DAILY atenoloL [Tenormin] 25 mg PO DAILY metFORMIN HCL [Glucophage] 1,000 mg PO DAILY Levothyroxine Sodium 112 mcg PO DAILY metFORMIN HCL [Glucophage] 500 mg PO HS PARoxetine [Paxil] 20 mg PO DAILY Discharge Medication List Atorvastatin [Lipitor] 10 mg PO DAILY 11/07/13 [History] atenoloL [Tenormin] 25 mg PO DAILY 11/07/13 [History] metFORMIN HCL [Glucophage] 1,000 mg PO DAILY 02/19/18 [History] Levothyroxine Sodium 112 mcg PO DAILY 04/21/21 [History] PARoxetine [Paxil] 20 mg PO DAILY 07/03/22 [History] metFORMIN HCL [Glucophage] 500 mg PO HS 07/03/22 [History] Follow up Appointment(s)/Referral(s): Meng Joe MD [Primary Care Provider] - 1-2 days Patient Instructions/Handouts: Mitral Regurgitation (DC), Syncope (DC) Activity/Diet/Wound Care/Special Instructions: Please keep your left arm elevated to reduce the swelling. Use warm compress if needed. Please see your PCP as soon as possible. You have a mitral regurgitation (leaky valve), which will need to be followed up in the future. Please avoid taking your 's medications. Discharge Disposition: HOME SELF-CARE
== END 2022-07-05 12:05 | disposition home or self-care (01) ==
LOC: EC 04:14 → 6NMEDSUR 06:35
PROVIDERS: ADMIT Internal Medicine; ATTEND Internal Medicine
DX: R55 Syncope and collapse (principal); R00.1 Bradycardia, unspecified; R11.10 Vomiting, unspecified; S01.81XA Laceration without foreign body of other part of head, initial encounter; W18.30XA Fall on same level, unspecified, initial encounter; E11.9 Type 2 diabetes mellitus without complications; I10 Essential (primary) hypertension; E78.5 Hyperlipidemia, unspecified; E03.9 Hypothyroidism, unspecified; F32.A Depression, unspecified; G47.09 Other insomnia; R29.6 Repeated falls; K21.9 Gastro-esophageal reflux disease without esophagitis; M19.90 Unspecified osteoarthritis, unspecified site; E07.9 Disorder of thyroid, unspecified; Z85.3 Personal history of malignant neoplasm of breast; F17.200 Nicotine dependence, unspecified, uncomplicated; I83.90 Asymptomatic varicose veins of unspecified lower extremity; Z98.891 History of uterine scar from previous surgery; Z90.10 Acquired absence of unspecified breast and nipple; Z90.49 Acquired absence of other specified parts of digestive tract; Z98.51 Tubal ligation status; Z98.890 Other specified postprocedural states; Z82.3 Family history of stroke; Z80.0 Family history of malignant neoplasm of digestive organs; Z80.8 Family history of malignant neoplasm of other organs or systems; Z79.84 Long term (current) use of oral hypoglycemic drugs; Z79.890 Hormone replacement therapy; Z79.899 Other long term (current) drug therapy; Z91.09 Other allergy status, other than to drugs and biological substances
CPT/HCPCS: 96361 ×4; 96372 ×2; 12051; 96360; 99285; 36415; 94760 ×2; 93005; 93306; 80053; 83605; 83735; 84100; 84484; 85025; 85610; 85730; 83036; 71045; 93971; 72125; 70450; G0378 ×3; S4990 ×2; J1650 ×2

== ENCOUNTER → 2022-11-14 | Outpatient (CLI) | payer MEDICARE ==
--- NOTE | 2022-11-14 11:18 | MM ---
Reason for Exam: Follow-up at short interval from prior study. Last mammogram was performed 1 year(s) and 3 month(s) ago. Patient History: Menarche at age 10. First Full-Term at age 22. Postmenopausal. Breast cancer, age 50. 2006, Mastectomy on the Right side. 2006, Excisional Biopsy on the Left side. Prior Study Comparison: 08/31/2017 Left Diagnostic Mammogram, [facility]. 12/09/2019 Left Diagnostic Mammogram, [facility]. 08/03/2021 Left Diagnostic Mammogram, [facility]. Tissue Density: Left: The breast tissue is heterogeneously dense. This may lower the sensitivity of mammography. Findings: Analyzed By CAD. No evidence for mass or distortion. No suspicious calcifications seen. Overall Assessment: Negative, BI-RAD 1 Management: Screening Mammogram of both breasts in 1 year. . Results were given to the patient verbally at the time of exam. Patient should continue monthly self-breast exams. A clinical breast exam by your physician is recommended on an annual basis. This exam should not preclude additional follow-up of suspicious palpable abnormalities. Note on Aria scores and lifetime risk: 1. A Aria score greater than 3% is considered moderate risk. If this is the case, consider specialist referral to assess eligibility for a risk reducing agent. 2. If overall lifetime risk for the development of breast cancer is 20% or higher, the patient may qualify for future screening with alternating mammogram and breast MRI. Electronically signed and approved by: Andrew Velazquez M.D. Radiologis
== END | disposition home or self-care (01) ==
LOC: RADMAMWWP 10:57
PROVIDERS: ATTEND Family Medicine
DX: Z85.3 Personal history of malignant neoplasm of breast (principal); Z78.0 Asymptomatic menopausal state
CPT/HCPCS: 77065; G0279; 77061

== ENCOUNTER → 2023-08-25 | Outpatient (CLI) | payer MEDICARE ==
--- NOTE | 2023-08-25 13:13 | CTL ---
EXAMINATION TYPE: CT Low Dose Lung DATE OF EXAM ORDERED: 08/25/2023 HISTORY: Lung cancer screening CT DLP: 76.[address] CTDI: 2.4 mGy Automated exposure control for dose reduction was used. COMPARISON: 02/23/2021 TECHNIQUE: Low dose computed tomography scan was performed through the chest at 1 mm thick sections a nd reconstructed images in multiple planes at 1 mm and [address] DIAGNOSTIC QUALITY: Satisfactory FINDINGS: There are single bilateral 3 to 4 mm pulmonary nodules. These are not clearly identified on the prior study. No new suspicious pulmonary mass or nodule seen. There is no abnormal airspace/consolidative density or abnormal interstitial density.. There is no pleural effusion, pleural thickening or pneumothorax. There is mild enlargement of the ascending thoracic aorta measuring 4.2 cm. There is no mediastinal, hilar or axillary adenopathy. Limited scanning through the upper abdomen reveals no gross abnormality No focal osseous lesions are seen. IMPRESSION: 1. Lung RADS category 2 benign. Continue routine screening intervals. 2. No acute cardiopulmonary disease. 3. Mild aneurysmal dilatation of the ascending thoracic aorta which measures 4.2 cm.
== END | disposition home or self-care (01) ==
LOC: RADCTMAIN 11:27
PROVIDERS: ATTEND Family Medicine
DX: Z12.2 Encounter for screening for malignant neoplasm of respiratory organs (principal); I71.21 Aneurysm of the ascending aorta, without rupture; F17.210 Nicotine dependence, cigarettes, uncomplicated
CPT/HCPCS: 71271

== ENCOUNTER → 2023-08-25 | Outpatient (CLI) | payer MEDICARE ==
--- NOTE | 2023-08-25 12:50 | BD ---
EXAMINATION TYPE: Axial Bone Density DATE OF EXAM: 08/25/2023 CLINICAL HISTORY: 68 years old Female. ICD-10 CODE: Z78.0 POST MENOPAUSAL Height: 63in Weight: 165lb FRAX RISK QUESTIONS: Secondary Osteoporosis: Current Tobacco Use: yes RISK FACTORS HISTORY OF: MEDICATIONS: Thyroid Medications: Which medication: Synthroid How Lon+ years EXAM MEASUREMENTS: Bone mineral densitometry was performed using the [employer] System. Bone mineral density as measured about the Lumbar spine is: ----- L1-L4(G/cm2): 1.067 T Score Values are as follows: ----- L1: -1.5 ----- L2: -0.8 ----- L3: -0.5 ----- L4: -1.2 ----- L1-L4: -0.9 Z Score Values are as follows: ----- L1: -0.1 ----- L2: 0.6 ----- L3: 0.8 ----- L4: 0.2 ----- L1-L4: 0.4 Bone mineral density has: Increased 0.9% since study of: 12-12-19 Bone mineral density about the R hip (g/cm2): 1.019 Bone mineral density about the L hip (g/cm2): 1.052 T Score values are as follows: -----R Neck: -0.9 -----L Neck: -0.7 -----R Total: 0.1 -----L Total: 0.4 Z Score values are as follows: -----R Neck: 0.6 -----L Neck: 0.8 -----R Total: 1.3 -----L Total: 1.6 Bone mineral density has: Decreased -5.4% since study of: 12-12-19 FRAX%s: The graph provided illustrates a 8.3% chance for a major osteoporotic fx and a 1.3% chance fo r the hips probability for fx in 10 years time. IMPRESSION: Osteopenia (T Score between -2.5 and -1). There is slightly increased risk of fracture and the patient may be considered for treatment. Re-Screen 2-5 years. NOTE: T-SCORE=SD OF THE YOUNG ADULT MEAN.
== END | disposition home or self-care (01) ==
LOC: RADBDWWP 11:28
PROVIDERS: ATTEND Family Medicine
DX: M85.88 Other specified disorders of bone density and structure, other site (principal); Z78.0 Asymptomatic menopausal state
CPT/HCPCS: 77080

== ENCOUNTER → 2023-12-11 | Outpatient (CLI) | payer MEDICARE ==
--- NOTE | 2023-12-11 13:21 | XR ---
EXAMINATION TYPE: XR wrist complete RT DATE OF EXAM: 12/11/2023 12:22 PM CLINICAL INDICATION:Female, 68 years old with history of M25.531 PAIN IN RIGHT WRIST; [facility] COMPARISON: None TECHNIQUE: XR wrist complete RT; examined in the Frontal, navicular, lateral, and oblique. FINDINGS: No acute osseous pathology, joint dislocation, or joint effusion. No evidence of any soft tissue swelling is seen. Degeneration of the joints of the wrist worse at the carpometacarpal joint o f the first digit. IMPRESSION: 1. No acute osseous pathology. 2. Multifocal degeneration changes worse at the first digit carpometacarpal joint.
== END | disposition home or self-care (01) ==
LOC: LABWHC1 11:53
PROVIDERS: ATTEND Family Medicine
DX: M19.031 Primary osteoarthritis, right wrist (principal); M18.11 Unilateral primary osteoarthritis of first carpometacarpal joint, right hand; E11.9 Type 2 diabetes mellitus without complications; W19.XXXA Unspecified fall, initial encounter
CPT/HCPCS: 36415; 83036

== ENCOUNTER 2024-05-11 16:43 | Inpatient (IN) | payer MEDICARE ==
[2024-05-11] MEDS: SODIUM CHLORIDE 0.9% 500 ML 500 ML IV ONE ×2 (17:29→19:38)
[2024-05-11] MEDS: HYDROmorphone 0.5 MG/0.5 ML SYRINGE IVP STA (17:30)
[2024-05-11] MEDS: ONDANSETRON 4 MG/2 ML VIAL IVP STA ×2 (17:30→19:38)
[2024-05-11 17:41] LABS: Basophils # (A) 0.1 k/uL (0-0.2); Basophils % (A) 1 %; Eosinophils # (A) 0.2 k/uL (0-0.7); Eosinophils % (A) 2 %; HCT 40.6 % (34.0-46.0); HGB 13.2 gm/dL (11.4-16.0); Lymphocytes # (A) 2.7 k/uL (1.0-4.8); Lymphocytes % (A) 18 %; MCH 30.8 pg (25.0-35.0); MCHC 32.4 g/dL (31.0-37.0); Monocytes # (A) 0.7 k/uL (0-1.0); Monocytes % (A) 5 %; Neutrophils # (A) 10.8 k/uL (1.3-7.7); Neutrophils % (A) 74 %; Platelet Count 283 k/uL (150-450); RBC 4.27 m/uL (3.80-5.40); RDW 12.5 % (11.5-15.5); WBC 14.7 k/uL (3.8-10.6)
[2024-05-11 17:43] LABS: Appearance,Urine Clear (Clear); Bilirubin,Urine Negative (Negative); Blood,Urine Small (Negative); Color,Urine Colorless; Glucose,Urine (UA) Negative (Negative); Ketones,Urine Negative (Negative); Leukocyte Esterase,Urine Negative (Negative); Mucus,Urine Rare /hpf; Nitrite,Urine Negative (Negative); Protein,Urine Negative (Negative); RBC,Urine 1 /hpf (0-5); Squamous Epithelial Cell,Urine 1 /hpf (0-4); Urobilinogen,Urine <2.0 mg/dL (<2.0); WBC,Urine 1 /hpf (0-5)
[2024-05-11 17:52] LABS: INR 0.9 (<1.2)
[2024-05-11 18:06] LABS: ALT 16 U/L (4-34); AST 19 U/L (14-36); African American GFR (CKD) 78 (>60 ml/min/1.73 sqM); Albumin 4.2 g/dL (3.5-5.0); Alkaline Phosphatase 124 U/L (38-126); Amylase 38 U/L (30-110); Anion Gap 9 mmol/L; Blood Urea Nitrogen 15 mg/dL (7-17); Calcium 10.3 mg/dL (8.4-10.2); Carbon Dioxide 21 mmol/L (22-30); Chloride 107 mmol/L (98-107); Glucose 140 mg/dL (74-99); Lipase 62 U/L (23-300); Non-African American GFR(CKD) 67 (>60 ml/min/1.73 sqM); Potassium 4.3 mmol/L (3.5-5.1); Sodium 137 mmol/L (137-145); Total Bilirubin 0.5 mg/dL (0.2-1.3); Total Protein 7.1 g/dL (6.3-8.2)
--- NOTE | 2024-05-11 18:07 | ED ---
General Adult HPI - General Chief complaint: Abdominal Pain Stated complaint: Right flank pain Time Seen by Provider: 05/11/24 17:05 Source: patient, RN notes reviewed, old records reviewed Mode of arrival: ambulatory Limitations: no limitations - History of Present Illness Initial comments: 68-year-old female with right-sided abdominal pain and flank pain over the past 1 week. Patient has had subjective fever and chills, nausea. No hematuria or dysuria. Previous history of cholecystectomy. - Related Data Home Medications Medication Instructions Recorded Confirmed Atorvastatin [Lipitor] 10 mg PO DAILY 11/07/13 07/03/22 atenoloL [Tenormin] 25 mg PO DAILY 11/07/13 07/03/22 metFORMIN HCL [Glucophage] 1,000 mg PO DAILY 02/19/18 07/03/22 Levothyroxine Sodium 112 mcg PO DAILY 04/21/21 07/03/22 PARoxetine [Paxil] 20 mg PO DAILY 07/03/22 07/03/22 metFORMIN HCL [Glucophage] 500 mg PO HS 07/03/22 07/03/22 Allergies Allergy/AdvReac Type Severity Reaction Status Date / Time adhesive Allergy Unknown Rash/Hives Verified 05/11/24 16:55 Review of Systems ROS Statement: Those systems with pertinent positive or pertinent negative responses have been documented in the HPI. ROS Other: All systems not noted in ROS Statement are negative. Past Medical History Past Medical History: Cancer, Diabetes Mellitus, GERD/Reflux, Hyperlipidemia, Hypertension, Osteoarthritis (OA), Thyroid Disorder Additional Past Medical History / Comment(s): HX BREAST CANCER ,VERTIGO,VARICOSE VEINS, HX OF GOITER WITH SURGERY., HX THYROID NODULE. History of Any Multi-Drug Resistant Organisms: None Reported Past Surgical History: Breast Surgery, Section, Cholecystectomy, Tubal Ligation Additional Past Surgical History / Comment(s): RT MASTECTOMY, GOITER REMOVED. COLONOSCOPY Past Anesthesia/Blood Transfusion Reactions: Postoperative Nausea & Vomiting (PONV) Past Psychological History: Anxiety, Depression Smoking Status: Current every day smoker Past Alcohol Use History: Rare Past Drug Use History: None Reported - Past Family History Mother Family Medical History: Cancer, CVA/TIA Additional Family Medical History / Comment(s): THROAT CA Father Family Medical History: Cancer Additional Family Medical History / Comment(s): CA COLON, PANCREATIC CANCER Brother(s) Family Medical History: Cancer Additional Family Medical History / Comment(s): BRAIN CA General Exam Limitations: no limitations General appearance: alert, in no apparent distress Head exam: Present: atraumatic, normocephalic Eye exam: Present: normal appearance, PERRL ENT exam: Present: normal exam Neck exam: Present: normal inspection. Absent: tenderness Respiratory exam: Present: normal lung sounds bilaterally. Absent: respiratory distress Cardiovascular Exam: Present: regular rate, normal rhythm GI/Abdominal exam: Present: soft, tenderness (Upper and lower tenderness). Absent: distended Neurological exam: Present: alert, oriented X3 Psychiatric exam: Present: normal affect, normal mood Skin exam: Present: warm, dry, intact Course Vital Signs 05/11/24 05/11/24 16:56 18:18 Temperature 98.1 F Pulse Rate 90 66 Respiratory 18 20 Rate Blood Pressure 148/89 144/77 O2 Sat by Pulse 99 95 Oximetry Medical Decision Making - Medical Decision Making Was pt. sent in by a medical professional or institution (, PA, [facility], urgent care, hospital, or skilled nursing...) When possible be specific @ -No Did you speak to anyone other than the patient for history (EMS, parent, family, police, friend...)? What history was obtained from this source @ -No Did you review nursing and triage notes (agree or disagree)? Why? @ -I reviewed and agree with nursing and triage notes Were old charts reviewed (outside hosp., previous admission, EMS record, old EKG, old radiological studies, urgent care reports/EKG's, skilled nursing records)? Report findings @ -No old charts were reviewed Differential Abdominal Pain Men: Appendicitis, cholecystitis, diverticulosis, ischemic bowel, pancreatitis, hepatitis, UTI, gastroenteritis, AAA, incarcerated hernia, bowel obstruction, constipation, inflammatory bowel, hepatitis, peptic ulcer disease, splenic i nfarction, perforated viscus, testicular torsion, this is not meant to be an all-inclusive list EKG interpreted by me (3pts min.). @ -As above X-rays interpreted by me (1pt min.). @ -None done CT interpreted by me (1pt min.). @CT concerning for acute appendicitis U/S interpreted by me (1pt. min.). @ -None done What testing was considered but not performed or refused? (CT, X-rays, U/S, labs)? Why? @ -None What meds were considered but not given or refused? Why? @ -None Did you discuss the management of the patient with other professionals (professionals i.e. , PA, [facility], lab, RT, psych nurse, social services counselor, supervisor [employer], teacher, armor officer, case managers)? Give summary @ -No Was smoking cessation discussed for >3mins.? @ -No Was critical care preformed (if so, how long)? @ -No Were there social determinants of health that impacted care today? How? (Homelessness, low income, unemployed, alcoholism, drug addiction, transportation, low edu. Level, literacy, decrease access to med. care, halfway, rehab)? @ -No Was there de-escalation of care discussed even if they declined (Discuss DNR or withdrawal of care, Hospice)? DNR status @ -No What co-morbidities impacted this encounter? (DM, HTN, Smoking, COPD, CAD, Cancer, CVA, ARF, Chemo, Hep., AIDS, mental health diagnosis, sleep apnea, morbid obesity)? @ -None Was patient admitted / discharged? Hospital course, mention meds given and route, prescriptions, significant lab abnormalities, going to OR and other pertinent info. @ 68-year-old female with 1 week history of right-sided abdominal pain. Focal tenderness in the right lower quadrant. She has a leukocytosis and mild elevated lactic. Urinalysis is unremarkable. CT concerning for acute appendicitis. Patient started on antibiotics. Case discussed with general surg ricardo Dr. Hill. Undiagnosed new problem with uncertain prognosis? @ -No Drug Therapy requiring intensive monitoring for toxicity (Heparin, Nitro, Insulin, Cardizem)? @ -No Were any procedures done? @ -No Diagnosis/symptom? @ -[Acute appendicitis Acute, or Chronic, or Acute on Chronic? @ -Acute Uncomplicated (without systemic symptoms) or Complicated (systemic symptoms)? @ -Default Side effects of treatment? @ -No Exacerbation, Progression, or Severe Exacerbation? @ -No Poses a threat to life or bodily function? How? (Chest pain, USA, LA, pneumonia, PE, COPD, DKA, ARF, appy, cholecystitis, CVA, Diverticulitis, Homicidal, Suicidal, threat to staff... and all critical care pts) @ -[Yes, sepsis - Lab Data Result diagrams: 05/11/24 17:27 05/11/24 17:27 Lab Results 05/11/24 05/11/24 05/11/24 Range/Units 17:27 17:27 17:27 WBC 14.7 H (3.8-10.6) k/uL RBC 4.27 (3.80-5.40) m/uL Hgb 13.2 (11.4-16.0) gm/dL Hct 40.6 (34.0-46.0) % MCV 95.0 (80.0-100.0) fL MCH 30.8 (25.0-35.0) pg MCHC 32.4 (31.0-37.0) g/dL RDW 12.5 (11.5-15.5) % Plt Count 283 (150-450) k/uL MPV 7.0 Neutrophils % 74 % Lymphocytes % 18 % Monocytes % 5 % Eosinophils % 2 % Basophils % 1 % Neutrophils # 10.8 H (1.3-7.7) k/uL Lymphocytes # 2.7 (1.0-4.8) k/uL Monocytes # 0.7 (0-1.0) k/uL Eosinophils # 0.2 (0-0.7) k/uL Basophils # 0.1 (0-0.2) k/uL PT 10.0 (10.0-12.5) sec INR 0.9 (<1.2) APTT 25.0 (22.0-30.0) sec Sodium (137-145) mmol/L Potassium (3.5-5.1) mmol/L Chloride (98-107) mmol/L Carbon Dioxide (22-30) mmol/L Anion Gap mmol/L BUN (7-17) mg/dL Creatinine (0.52-1.04) mg/dL Est GFR (CKD-EPI)AfAm (>60 ml/min/1.73 sqM) Est GFR (CKD-EPI)NonAf (>60 ml/min/1.73 sqM) Glucose (74-99) mg/dL Plasma Lactic Acid Eron (0.7-2.0) mmol/L Calcium (8.4-10.2) mg/dL Total Bilirubin (0.2-1.3) mg/dL AST (14-36) U/L ALT (4-34) U/L Alkaline Phosphatase (38-126) U/L Total Protein (6.3-8.2) g/dL Albumin (3.5-5.0) g/dL Amylase (30-110) U/L Lipase (23-300) U/L Urine Color Colorless Urine Appearance Clear (Clear) Urine pH 5.0 (5.0-8.0) Ur Specific [employer] 1.010 (1.001-1.035) Urine Protein Negative (Negative) Urine Glucose (UA) Negative (Negative) Urine Ketones Negative (Negative) Urine Blood Small H (Negative) Urine Nitrite Negative (Negative) Urine Bilirubin Negative (Negative) Urine Urobilinogen <2.0 (<2.0) mg/dL Ur Leukocyte Esterase Negative (Negative) Urine RBC 1 (0-5) /hpf Urine WBC 1 (0-5) /hpf Ur Squamous Epith Cells 1 (0-4) /hpf Urine Mucus Rare H (None) /hpf 05/11/24 05/11/24 Range/Units 17:27 17:27 WBC (3.8-10.6) k/uL RBC (3.80-5.40) m/uL Hgb (11.4-16.0) gm/dL Hct (34.0-46.0) % MCV (80.0-100.0) fL MCH (25.0-35.0) pg MCHC (31.0-37.0) g/dL RDW (11.5-15.5) % Plt Count (150-450) k/uL MPV Neutrophils % % Lymphocytes % % Monocytes % % Eosinophils % % Basophils % % Neutrophils # (1.3-7.7) k/uL Lymphocytes # (1.0-4.8) k/uL Monocytes # (0-1.0) k/uL Eosinophils # (0-0.7) k/uL Basophils # (0-0.2) k/uL PT (10.0-12.5) sec INR (<1.2) APTT (22.0-30.0) sec Sodium 137 (137-145) mmol/L Potassium 4.3 (3.5-5.1) mmol/L Chloride 107 (98-107) mmol/L Carbon Dioxide 21 L (22-30) mmol/L Anion Gap 9 mmol/L BUN 15 (7-17) mg/dL Creatinine 0.88 (0.52-1.04) mg/dL Est GFR (CKD-EPI)AfAm 78 (>60 ml/min/1.73 sqM) Est GFR (CKD-EPI)NonAf 67 (>60 ml/min/1.73 sqM) Glucose 140 H (74-99) mg/dL Plasma Lactic Acid Eron 2.4 H* (0.7-2.0) mmol/L Calcium 10.3 H (8.4-10.2) mg/dL Total Bilirubin 0.5 (0.2-1.3) mg/dL AST 19 (14-36) U/L ALT 16 (4-34) U/L Alkaline Phosphatase 124 (38-126) U/L Total Protein 7.1 (6.3-8.2) g/dL Albumin 4.2 (3.5-5.0) g/dL Amylase 38 (30-110) U/L Lipase 62 (23-300) U/L Urine Color Urine Appearance (Clear) Urine pH (5.0-8.0) Ur Specific [employer] (1.001-1.035) Urine Protein (Negative) Urine Glucose (UA) (Negative) Urine Ketones (Negative) Urine Blood (Negative) Urine Nitrite (Negative) Urine Bilirubin (Negative) Urine Urobilinogen (<2.0) mg/dL Ur Leukocyte Esterase (Negative) Urine RBC (0-5) /hpf Urine WBC (0-5) /hpf Ur Squamous Epith Cells (0-4) /hpf Urine Mucus (None) /hpf Disposition Clinical Impression: Acute appendicitis Disposition: ADMITTED IP TO THIS HOSP Condition: Stable Is patient prescribed a controlled substance at d/c from ED?: No Referrals: Meng Joe MD [Primary Care Provider] - 1-2 days Time of Disposition: 19:31
--- NOTE | 2024-05-11 19:07 | CT ---
EXAMINATION TYPE: CT abdomen pelvis w con DATE OF EXAM: 05/11/2024 6:43 PM COMPARISON: None available. CLINICAL INDICATION: Female, 68 years old with history of Right side pain; Rt side abdominal pain. TECHNIQUE: Axial CT abdomen pelvis w con;Sagittal and coronal reformats were created on a separate w orkstation. Contrast used:100 ml mL of Isovue 300 with IV Contrast, (none if empty) Oral contrast used: without Oral Contrast (none if empty) CT DLP: 890.7 mGycm, Automated exposure control for dose reduction was used. FINDINGS: LOWER CHEST: Unremarkable ABDOMEN LIVER: Diffusely hypoattenuating parenchyma. GALLBLADDER AND BILE DUCTS: The gallbladder is surgically absent. PANCREAS: Unremarkable. SPLEEN: Unremarkable. ADRENAL GLANDS: Unremarkable. KIDNEYS AND URETERS: No evidence of hydronephrosis or renal calculus. The ureters are unremarkable. PELVIS BLADDER: No evidence for wall thickening or mass given limitations of exam. REPRODUCTIVE: Unremarkable. ABDOMEN & PELVIS STOMACH AND BOWEL: Stomach and duodenum are unremarkable. Small hiatal hernia. No evidence of bowel o bstruction. There is right lower quadrant mesenteric stranding/edema (axial series 3 image 53). [employer] ionable blind ending dilated right lower quadrant structure ( sagittal series image 49) which could r eflect an inflamed appendix (coronal image 43). This questionable region could also reflect portion o f the cecum. PERITONEUM/RETROPERITONEUM: No evidence of pneumoperitoneum or free fluid. VASCULATURE: Mixed calcified atherosclerotic disease of the abdominal aorta with mild infrarenal fusi form aneurysmal dilatation measuring 3.1 x 2.9 cm. Circumaortic left renal vein incidentally noted. MUSCULOSKELETAL: No acute osseous abnormalities LYMPH NODES: No gross evidence for lymphadenopathy. SOFT TISSUE/ABDOMINAL WALL: Unremarkable IMPRESSION: Findings concerning for possible acute appendicitis. However, other differential diagnostic considera tion would be an inflamed irregular shaped cecum as described above. cNo evidence of large volume pne umoperitoneum to suggest perforation. Recommend surgical consultation. [facility], , 05/11/2024 7:05 PM
[2024-05-11] MEDS ORDERED: HYDROmorphone 0.5 MG/0.5 ML SYRINGE IVP PRN (19:28)
[2024-05-11] MEDS ORDERED: NALOXONE 0.4 MG/ML 1 ML VIAL IV PRN (19:28)
[2024-05-11] MEDS ORDERED: ONDANSETRON 4 MG/2 ML VIAL IVP PRN (19:28)
[2024-05-11] MEDS: PIPERACILLIN-TAZOBACTAM 3.375 GM in SODIUM CHLORIDE 0.9% 100 ML IVPB STA (19:38)
[2024-05-11] MEDS: SODIUM CHLORIDE 0.9% 1,000 ML IV SCH (20:25)
--- NOTE | 2024-05-11 20:39 | P.GSHP ---
History of Present Illness H&P Date: 05/11/24 Chief Complaint: Abdominal pain Abdominal pain for 7 days. Nausea and vomiting today. - Review of Systems All systems: negative - Constitutional Constitutional: Reports as per HPI - EENT Eyes: denies decreased vision (s/p cataracts) Ears: bilateral: decreased hearing - Breasts Breasts: right: as per HPI (right mastectomy) - Cardiovascular Cardiovascular: Reports high blood pressure (hasn't had her atenolol in a week), Denies shortness of breath - Respiratory Respiratory: Reports as per HPI (smoker) - Gastrointestinal Gastrointestinal: Reports abdominal pain - Menstruation Menstruation: Reports postmenopausal - Musculoskeletal Musculoskeletal: bilateral: knee pain - Psychiatric Psychiatric: Reports anxiety, Reports depression (hasn't had her Paxil in a week and is worried about issues) Past Medical History Past Medical History: Cancer, Diabetes Mellitus, GERD/Reflux, Hyperlipidemia, Hypertension, Osteoarthritis (OA), Thyroid Disorder Additional Past Medical History / Comment(s): HX BREAST CANCER ,VERTIGO,VARICOSE VEINS, HX OF GOITER WITH SURGERY., HX THYROID NODULE. History of Any Multi-Drug Resistant Organisms: None Reported Past Surgical History: Breast Surgery, Section, Cholecystectomy, Tubal Ligation Additional Past Surgical History / Comment(s): RT MASTECTOMY, GOITER REMOVED. COLONOSCOPY Past Anesthesia/Blood Transfusion Reactions: Postoperative Nausea & Vomiting (PONV) Past Psychological History: Anxiety, Depression Smoking Status: Current every day smoker Past Alcohol Use History: Rare Past Drug Use History: None Reported - Past Family History Mother Family Medical History: Cancer, CVA/TIA Additional Family Medical History / Comment(s): THROAT CA Father Family Medical History: Cancer Additional Family Medical History / Comment(s): CA COLON, PANCREATIC CANCER Brother(s) Family Medical History: Cancer Additional Family Medical History / Comment(s): BRAIN CA Medications and Allergies Home Medications Medication Instructions Recorded Confirmed Type Atorvastatin [Lipitor] 10 mg PO HS 11/07/13 05/11/24 History atenoloL [Tenormin] 25 mg PO HS 11/07/13 05/11/24 History Levothyroxine Sodium 112 mcg PO DAILY 04/21/21 05/11/24 History PARoxetine [Paxil] 20 mg PO HS 07/03/22 05/11/24 History glipiZIDE [Glucotrol] 5 mg PO HS 05/11/24 05/11/24 History metFORMIN HCL [Glucophage] 500 mg PO BID 05/11/24 05/11/24 History Allergies Allergy/AdvReac Type Severity Reaction Status Date / Time adhesive Allergy Unknown Rash/Hives Verified 05/11/24 19:57 Surgical - Exam Vital Signs Temp Pulse Resp BP Pulse Ox 98.1 F 90 18 148/89 99 05/11/24 16:56 05/11/24 16:56 05/11/24 16:56 05/11/24 16:56 05/11/24 16:56 Results - Labs 05/11/24 17:27 05/11/24 17:27 Abnormal Lab Results - Last 24 Hours (Table) 05/11/24 05/11/24 05/11/24 Range/Units 17:27 17:27 17:27 WBC 14.7 H (3.8-10.6) k/uL Neutrophils # 10.8 H (1.3-7.7) k/uL Carbon Dioxide 21 L (22-30) mmol/L Glucose 140 H (74-99) mg/dL Plasma Lactic Acid Eron (0.7-2.0) mmol/L Calcium 10.3 H (8.4-10.2) mg/dL Urine Blood Small H (Negative) Urine Mucus Rare H (None) /hpf 05/11/24 Range/Units 17:27 WBC (3.8-10.6) k/uL Neutrophils # (1.3-7.7) k/uL Carbon Dioxide (22-30) mmol/L Glucose (74-99) mg/dL Plasma Lactic Acid Eron 2.4 H* (0.7-2.0) mmol/L Calcium (8.4-10.2) mg/dL Urine Blood (Negative) Urine Mucus (None) /hpf Diabetes panel 05/11/24 Range/Units 17:27 Sodium 137 (137-145) mmol/L Potassium 4.3 (3.5-5.1) mmol/L Chloride 107 (98-107) mmol/L Carbon Dioxide 21 L (22-30) mmol/L BUN 15 (7-17) mg/dL Creatinine 0.88 (0.52-1.04) mg/dL Glucose 140 H (74-99) mg/dL Calcium 10.3 H (8.4-10.2) mg/dL AST 19 (14-36) U/L ALT 16 (4-34) U/L Alkaline Phosphatase 124 (38-126) U/L Total Protein 7.1 (6.3-8.2) g/dL Albumin 4.2 (3.5-5.0) g/dL Calcium panel 05/11/24 Range/Units 17:27 Calcium 10.3 H (8.4-10.2) mg/dL Albumin 4.2 (3.5-5.0) g/dL Pituitary panel 05/11/24 Range/Units 17:27 Sodium 137 (137-145) mmol/L Potassium 4.3 (3.5-5.1) mmol/L Chloride 107 (98-107) mmol/L Carbon Dioxide 21 L (22-30) mmol/L BUN 15 (7-17) mg/dL Creatinine 0.88 (0.52-1.04) mg/dL Glucose 140 H (74-99) mg/dL Calcium 10.3 H (8.4-10.2) mg/dL Adrenal panel 05/11/24 Range/Units 17:27 Sodium 137 (137-145) mmol/L Potassium 4.3 (3.5-5.1) mmol/L Chloride 107 (98-107) mmol/L Carbon Dioxide 21 L (22-30) mmol/L BUN 15 (7-17) mg/dL Creatinine 0.88 (0.52-1.04) mg/dL Glucose 140 H (74-99) mg/dL Calcium 10.3 H (8.4-10.2) mg/dL Total Bilirubin 0.5 (0.2-1.3) mg/dL AST 19 (14-36) U/L ALT 16 (4-34) U/L Alkaline Phosphatase 124 (38-126) U/L Total Protein 7.1 (6.3-8.2) g/dL Albumin 4.2 (3.5-5.0) g/dL
[2024-05-11] MEDS: BUPIVACAINE (PF) 0.5% 30 ML VIAL SQ ONE ×2 (21:26→22:02)
[2024-05-11] MEDS: LIDOCAINE 1% INJ 10MG/ML (20 ML MDV) SQ ONE ×2 (21:27→22:02)
[2024-05-11] MEDS: DEXAMETHASONE SOD PHOSPHATE 4 MG/ML 1 ML VIAL IVP STA (21:32)
[2024-05-11] MEDS ORDERED: fentaNYL (PF) 50 MCG/ML 2 ML AMP ONE (21:33)
[2024-05-11] MEDS ORDERED: GLYCOPYRROLATE 0.2 MG/ML 2 ML VIAL ONE (21:33)
[2024-05-11] MEDS ORDERED: ACETAMINOPHEN IV (For NPO) 1,000 MG/100 ML VIAL ONE (21:33)
[2024-05-11] MEDS ORDERED: KETOROLAC 15 MG/ML 1 ML VIAL ONE (21:33)
[2024-05-11] MEDS: FAMOTIDINE 20 MG/2 ML VIAL IV STA (21:33)
[2024-05-11] MEDS ORDERED: LIDOCAINE 1% INJ 10MG/ML (20 ML MDV) ONE (21:33)
[2024-05-11] MEDS ORDERED: LIDOCAINE 4% LTA KIT (4 ML) TOPICAL ONE (21:33)
[2024-05-11] MEDS ORDERED: ePHEDrine 50 MG/ML 1 ML VIAL ONE (21:33)
[2024-05-11] MEDS ORDERED: ROCURONIUM 10 MG/ML (5 ML VIAL) IV ONE (21:33)
[2024-05-11] MEDS ORDERED: NEOSTIGMINE 1 MG/ML 10 ML VIAL ONE (21:33)
[2024-05-11] MEDS ORDERED: SUCCINYLCHOLINE CHLORIDE 200 MG/10 ML VIAL IV ONE (21:33)
[2024-05-11] MEDS ORDERED: PROPOFOL 10 MG/ML 20 ML VIAL IV ONE (21:33)
[2024-05-11] MEDS: SODIUM CHLORIDE 0.9% 1,000 ML IV ONE (21:35)
[2024-05-11] MEDS: LACTATED RINGERS 1,000 ML IV ONE (22:16)
[2024-05-12] MEDS: LACTATED RINGERS 1,000 ML IV ONE (00:02)
[2024-05-12 00:37] LABS: Glucose,Whole Blood 191 mg/dL (70-110)
--- NOTE | 2024-05-12 00:43 | P.OP ---
Date of Procedure: 05/11/24 Preoperative Diagnosis: Acute appendicitis Postoperative Diagnosis: Appendiceal phlegmon Procedure(s) Performed: Laparoscopic ileocolic resection with extracorporal anastomosis (partial colectomy with removal of terminal ileum and anastomosis) Implants: none Anesthesia: NIKOLAI Surgeon: Tim Hill Estimated Blood Loss (ml): 100 Urine output (ml): 150 Pathology: other (ileocolic resection) Condition: stable Disposition: PACU Indications for Procedure: The pain had RLQ pain and an inflammatory mass of the cecum. Operative Findings: After the patient was given an adequate general endotracheal anesthetic, she was prepped and draped in a sterile fashion. A left mid abdominal incision was made for open port insertion. Pneumoperitoneum was established and LLQ and RUQ ports were placed under direct laparoscopic vision. The cecum was mobilized to evaluate the appendix. No purulent fluid was encountered but rather a chronic inflammatory reaction of the ileocecal junction. The base of the appendix was identified but the remainder of the appendix was involved in a chronic inflammatory mass involving the cecum. The appendix was not able to be dissection out. The next step was to remove the phlegmon. The right colon was mobilized. A high ligation was done of the ileocolic vessels with a vascular staple load. A medial to lateral dissection of the right colon was done. The hepatic flexure was mobilized. The laparoscopic equipment was removed and a midline incision was made to remove the specimen and do an extracorporal anastomosis. The distal ileum was divided with a DONNIE stapler. The distal as cending colon was divided with the DONNIE stapler. A side to side isoperistaltic anastomosis was done with the DONNIE stapler. The stapler enterotomy was closed with 2 layer 3-0 Vicryl. The mesenteric defect was closed with 3-0 Vicryl. A drain was placed in the right colic gutter. The fascial layers of the open port insertion site were closed with 0 Vicryl. The midline incision was closed with a running #1 looped PDS suture.The skin was closed with a deep dermal 3-0 Vicryl and a running subcuticular 4-0 Monocryl. Skin glue was applied. The patient tolerated the procedure well and was taken to PACU in satisfactory condition. Description of Procedure: above The operative findings were an appendiceal phlegmon.
[2024-05-12] MEDS ORDERED: ONDANSETRON 4 MG in SODIUM CHLORIDE 0.9% 50 ML IV PRN (00:48)
[2024-05-12] MEDS: hydrALAZINE HCL 20 MG/ML 1 ML VIAL IVP STA (01:03)
[2024-05-12] MEDS: SODIUM CHLORIDE 0.9% 1,000 ML IV SCH (02:18)
[2024-05-12] MEDS: PIPERACILLIN-TAZOBACTAM 3.375 GM in SODIUM CHLORIDE 0.9% 100 ML IVPB SCH (02:18)
[2024-05-12] MEDS: atenoloL 25 MG TAB PO STA (02:19)
--- NOTE | 2024-05-12 03:05 | XR ---
EXAM: XR Chest, 1 View CLINICAL HISTORY: ITS.REASON XR Reason: NG position TECHNIQUE: Frontal view of the chest. COMPARISON: No relevant prior studies available. IMPRESSION: NG tube side port is above the diaphragm. Recommend advancing 5-10 cm
[2024-05-12 04:56] LABS: HCT 36.1 % (34.0-46.0); HGB 11.6 gm/dL (11.4-16.0); MCHC 32.2 g/dL (31.0-37.0); MCV 96.1 fL (80.0-100.0); Mean Platelet Volume 7.6; Platelet Count 261 k/uL (150-450); RBC 3.76 m/uL (3.80-5.40); WBC 16.5 k/uL (3.8-10.6)
[2024-05-12 06:13] LABS: Glucose,Whole Blood 272 mg/dL (70-110)
[2024-05-12] MEDS: PARoxetine 20 MG TAB PO SCH (08:31)
[2024-05-12] MEDS: HEPARIN SODIUM,PORCINE 5,000 UNIT/ML 1 ML VIAL SQ SCH (08:31)
[2024-05-12] MEDS: FAMOTIDINE 20 MG/2 ML VIAL IV SCH (08:32)
[2024-05-12] MEDS: KETOROLAC 15 MG/ML 1 ML VIAL IVP PRN (08:32)
--- NOTE | 2024-05-12 09:17 | P.PN ---
Subjective Progress Note Date: 05/12/24 patient's resting in her bed. She has some complaints of incisional pain. She's had no flatus or bowel movements. On exam vital signs appear stable. Abdomen is soft incision sites are clean. Status post appendectomy with sacrectomy. Patient will continue to receive supportive care. Objective - Vital Signs Vital signs: Vital Signs Temp 98.3 F 05/12/24 08:26 Pulse 97 05/12/24 08:26 Resp 17 05/12/24 08:26 BP 136/77 05/12/24 08:26 Pulse Ox 95 05/12/24 08:26 FiO2 Intake & Output 05/11/24 05/12/24 05/12/24 18:59 06:59 18:59 Intake Total 2200 Output Total 480 Balance 1720 Weight 74.843 kg 74.843 kg Intake: IV 2200 Output: Drainage 230 Right Lower Abdomen 230 Urine 150 Estimated Blood Loss 100 - Labs CBC & Chem 7: 05/12/24 04:31 05/11/24 17:27 Labs: Abnormal Lab Results - Last 24 Hours (Table) 05/11/24 05/11/24 05/11/24 Range/Units 17:27 17:27 17:27 WBC 14.7 H (3.8-10.6) k/uL RBC (3.80-5.40) m/uL Neutrophils # 10.8 H (1.3-7.7) k/uL Carbon Dioxide 21 L (22-30) mmol/L Glucose 140 H (74-99) mg/dL POC Glucose (mg/dL) (70-110) mg/dL Plasma Lactic Acid Eron (0.7-2.0) mmol/L Calcium 10.3 H (8.4-10.2) mg/dL Urine Blood Small H (Negative) Urine Mucus Rare H (None) /hpf 05/11/24 05/12/24 05/12/24 Range/Units 17:27 00:35 04:31 WBC 16.5 H (3.8-10.6) k/uL RBC 3.76 L (3.80-5.40) m/uL Neutrophils # (1.3-7.7) k/uL Carbon Dioxide (22-30) mmol/L Glucose (74-99) mg/dL POC Glucose (mg/dL) 191 H (70-110) mg/dL Plasma Lactic Acid Eron 2.4 H* (0.7-2.0) mmol/L Calcium (8.4-10.2) mg/dL Urine Blood (Negative) Urine Mucus (None) /hpf 05/12/24 Range/Units 06:11 WBC (3.8-10.6) k/uL RBC (3.80-5.40) m/uL Neutrophils # (1.3-7.7) k/uL Carbon Dioxide (22-30) mmol/L Glucose (74-99) mg/dL POC Glucose (mg/dL) 272 H (70-110) mg/dL Plasma Lactic Acid Eron (0.7-2.0) mmol/L Calcium (8.4-10.2) mg/dL Urine Blood (Negative) Urine Mucus (None) /hpf
[2024-05-12] MEDS: ONDANSETRON 4 MG/2 ML VIAL IVP PRN (11:08)
[2024-05-12] MEDS: MORPHINE SULFATE 4 MG/ML SYRINGE IVP PRN (11:08)
[2024-05-12 11:30] LABS: Glucose,Whole Blood 215 mg/dL (70-110)
[2024-05-12 17:41] LABS: Glucose,Whole Blood 147 mg/dL (70-110)
[2024-05-12 21:14] LABS: Glucose,Whole Blood 137 mg/dL (70-110)
--- NOTE | 2024-05-12 22:59 | P.CONS ---
History of Present Illness - Reason for Consult Consult date: 05/12/24 Appendicitis Requesting physician: Foreign [facility] - Chief Complaint Abdominal pain x 1 week - History of Present Illness Patient is a 68-year-old female with a past medical history significant for diabetes mellitus hypertension hyperlipidemia reflux breast cancer presenting to the hospital for evaluation of abdominal pain intermittently has been going on for about a week pain has been mostly lower abdominal area describing it to be dull aching to sharp moderate intensity without any radiation patient did have nausea but no vomiting with associated fever and chills no urinary symptoms with the symptoms the patient has been evaluated on presentation to the hospital patient was afebrile and no fever have been recorded subsequently patient was nontachycardic hypotensive or hypoxic patient did have white count of 14.7 which is up to 16.5 today creatinine 0.88 urine has been negative patient did have abdominal pelvis CT and did shows evidence of acute appendicitis no evidence of large volume pneumoperitoneum patient was taken to the OR and noticed to have acute appendicitis with phlegmon formation patient is status post laparoscopic ileocolic resection with extracorporeal anastomosis, operative report mention no purulent fluid was encountered other chronic inflammatory reaction of the ileocecal junction no cultures has been done patient has been treated empirically with Zosyn infectious was consulted today for further management of antibiotic therapy Review of Systems Positive point and negatives has been mentioned in the HPI, complete review of systems was performed and all other systems are negative Past Medical History Past Medical History: Cancer, Diabetes Mellitus, GERD/Reflux, Hyperlipidemia, Hypertension, Osteoarthritis (OA), Thyroid Disorder Additional Past Medical History / Comment(s): HX BREAST CANCER ,VERTIGO,VARICOSE VEINS, HX OF GOITER WITH SURGERY., HX THYROID NODULE. History of Any Multi-Drug Resistant Organisms: None Reported Past Surgical History: Breast Surgery, Section, Cholecystectomy, Tubal Ligation Additional Past Surgical History / Comment(s): RT MASTECTOMY, GOITER REMOVED. COLONOSCOPY Past Anesthesia/Blood Transfusion Reactions: Postoperative Nausea & Vomiting (PONV) Past Psychological History: Anxiety, Depression Smoking Status: Current every day smoker Past Alcohol Use History: Rare Additional Past Alcohol Use History / Comment(s): SMOKES 1 PPD., SINCE AGE 14 Past Drug Use History: None Reported - Past Family History Mother Family Medical History: Cancer, CVA/TIA Additional Family Medical History / Comment(s): THROAT CA Father Family Medical History: Cancer Additional Family Medical History / Comment(s): CA COLON, PANCREATIC CANCER Brother(s) Family Medical History: Cancer Additional Family Medical History / Comment(s): BRAIN CA Medications and Allergies Home Medications Medication Instructions Recorded Confirmed Type Atorvastatin [Lipitor] 10 mg PO HS 11/07/13 05/11/24 History atenoloL [Tenormin] 25 mg PO HS 11/07/13 05/11/24 History Levothyroxine Sodium 112 mcg PO DAILY 04/21/21 05/11/24 History PARoxetine [Paxil] 20 mg PO HS 07/03/22 05/11/24 History glipiZIDE [Glucotrol] 5 mg PO HS 05/11/24 05/11/24 History metFORMIN HCL [Glucophage] 500 mg PO BID 05/11/24 05/11/24 History Allergies Allergy/AdvReac Type Severity Reaction Status Date / Time adhesive Allergy Unknown Rash/Hives Verified 05/11/24 19:57 Physical Exam Vitals: Vital Signs Temp Pulse Pulse Pulse Pulse Resp BP 05/12/24 08:26 98.3 F 97 17 05/12/24 07:00 98.5 F 95 15 05/12/24 04:10 97.5 F L 92 05/12/24 03:40 97 05/12/24 03:10 99 05/12/24 02:55 97 05/12/24 02:40 100 05/12/24 02:25 111 H 05/12/24 02:15 97.6 F 97 18 05/12/24 02:10 97.6 F 98 05/12/24 01:44 92 18 05/12/24 01:30 88 20 05/12/24 01:14 85 16 05/12/24 00:59 74 16 05/12/24 00:44 66 16 05/12/24 00:29 96.8 F L 78 12 05/11/24 20:30 71 16 144/73 05/11/24 19:30 98.1 F 68 15 145/70 05/11/24 18:18 66 20 144/77 05/11/24 16:56 98.1 F 90 18 148/89 BP Pulse Ox 05/12/24 08:26 136/77 95 05/12/24 07:00 142/78 100 05/12/24 04:10 143/84 99 05/12/24 03:40 136/82 100 05/12/24 03:10 138/78 98 05/12/24 02:55 137/81 99 05/12/24 02:40 134/82 99 05/12/24 02:25 161/82 99 05/12/24 02:15 146/79 98 05/12/24 02:10 146/79 98 05/12/24 01:44 156/81 98 05/12/24 01:30 150/79 100 05/12/24 01:14 177/89 99 05/12/24 00:59 182/96 98 05/12/24 00:44 164/77 100 05/12/24 00:29 164/76 98 05/11/24 20:30 97 05/11/24 19:30 99 05/11/24 18:18 95 05/11/24 16:56 99 Intake and Output 05/11/24 05/12/24 05/12/24 22:59 06:59 14:59 Intake Total 1900 300 Output Total 480 Balance 1900 -180 Intake: IV 1900 300 Output: Drainage 230 Right Lower Abdomen 230 Urine 150 Estimated Blood Loss 100 Other: Weight 74.843 kg 74.843 kg GENERAL DESCRIPTION: Elderly female lying in bed, no distress. No tachypnea or accessory muscle of respiration use. HEENT: Shows Pallor , no scleral icterus. Oral mucous membrane is dry. No pharyngeal erythema or thrush NECK: Trachea central, no thyromegaly. LUNGS: Unlabored breathing. Clear to auscultation anteriorly. No wheeze or crackle. HEART: S1, S2, regular rate and rhythm. No loud murmur ABDOMEN: Soft, mild tenderness , no guarding or rigidity EXTREMITIES: No edema of feet. SKIN: No rash, no masses palpable. NEUROLOGICAL: The patient is awake, alert, oriented x3, mood and affect normal. Results CBC & Chem 7: 05/12/24 04:31 05/11/24 17:27 Labs: Abnormal Lab Results - Last 24 Hours (Table) 05/11/24 05/11/24 05/11/24 Range/Units 17:27 17:27 17:27 WBC 14.7 H (3.8-10.6) k/uL RBC (3.80-5.40) m/uL Neutrophils # 10.8 H (1.3-7.7) k/uL Carbon Dioxide 21 L (22-30) mmol/L Glucose 140 H (74-99) mg/dL POC Glucose (mg/dL) (70-110) mg/dL Plasma Lactic Acid Eron (0.7-2.0) mmol/L Calcium 10.3 H (8.4-10.2) mg/dL Urine Blood Small H (Negative) Urine Mucus Rare H (None) /hpf 05/11/24 05/12/24 05/12/24 Range/Units 17:27 00:35 04:31 WBC 16.5 H (3.8-10.6) k/uL RBC 3.76 L (3.80-5.40) m/uL Neutrophils # (1.3-7.7) k/uL Carbon Dioxide (22-30) mmol/L Glucose (74-99) mg/dL POC Glucose (mg/dL) 191 H (70-110) mg/dL Plasma Lactic Acid Eron 2.4 H* (0.7-2.0) mmol/L Calcium (8.4-10.2) mg/dL Urine Blood (Negative) Urine Mucus (None) /hpf 05/12/24 Range/Units 06:11 WBC (3.8-10.6) k/uL RBC (3.80-5.40) m/uL Neutrophils # (1.3-7.7) k/uL Carbon Dioxide (22-30) mmol/L Glucose (74-99) mg/dL POC Glucose (mg/dL) 272 H (70-110) mg/dL Plasma Lactic Acid Eron (0.7-2.0) mmol/L Calcium (8.4-10.2) mg/dL Urine Blood (Negative) Urine Mucus (None) /hpf Assessment and Plan (1) Acute appendicitis Current Visit: Yes Status: Acute Code(s): K35.80 - UNSPECIFIED ACUTE APPENDICITIS SNOMED Code(s): 67276947 (2) Leukocytosis Current Visit: Yes Status: Acute Code(s): D72.829 - ELEVATED WHITE BLOOD C ELL COUNT, UNSPECIFIED SNOMED Code(s): 238239946 Plan: 1patient presented to hospital abdominal pain and this patient has been diagnosed with acute appendicitis status post laparoscopic ileocecectomy operative report did not mention any purulent drainage and no culture, we will need to cover for the enteric gram-negative both aerobes and anaerobes 2-leukocytosis more likely related to acute appendicitis with phlegmon 3-Zosyn 3.375 g every 8 hour should provide adequate empiric antibiotic coverage We will follow on clinical condition and cultures to further adjust medication if needed Thank you for this consultation we will follow the patient along with you Dictation was produced using [employer] dictation software. please excuse any gr ammatical, word or spelling errors. Time with Patient: Greater than 30
[2024-05-13 00:10] LABS: Glucose,Whole Blood 118 mg/dL (70-110)
[2024-05-13 06:30] LABS: Glucose,Whole Blood 141 mg/dL (70-110)
[2024-05-13] MEDS: LEVOTHYROXINE 112 MCG TAB PO SCH (09:33)
[2024-05-13] MEDS: KETOROLAC 15 MG/ML 1 ML VIAL IVP SCH (10:46)
--- NOTE | 2024-05-13 11:16 | P.PN ---
Subjective Progress Note Date: 05/13/24 SURGICAL PROGRESS NOTE CHIEF COMPLAINT: Appendiceal phlegmon HISTORY OF PRESENT ILLNESS: Patient is postop day #3 status post laparoscopic ileocolic resection with extracorporeal anastomosis. Patient has NG tube in place with 150 mL output. Pain is controlled. She did have nausea. No flatus. Arora catheter discontinued this morning. Afebrile. Labs pending. ALAINA drain 120 mL sanguinous output PHYSICAL EXAM: VITAL SIGNS: Reviewed. GENERAL: Well-developed in no acute distress. ABDOMEN: Soft. Nondistended. Incision site clean dry and intact. ALAINA drain with sanguinous output. NEUROLOGIC: Alert and oriented. Cranial nerves II through XII grossly intact. ASSESSMENT: 1. Appendiceal phlegmon PLAN: -Arora catheter discontinued today -Continue to monitor ALAINA drain output -Continue antibiotics -Medicine service consulted for medical management -Encourage incentive spirometer use -Encourage patient to increase activity level -Continue NG tube for decompression Physician Engineer Technician note has been reviewed by physician. Signing provider agrees with the documented findings, assessment, and plan of care. Objective - Vital Signs Vital signs: Vital Signs Temp 98.1 F 05/13/24 07:13 Pulse 84 05/13/24 07:13 Resp 18 05/13/24 07:13 BP 146/76 05/13/24 07:13 Pulse Ox 95 05/13/24 07:13 FiO2 Intake & Output 05/12/24 05/13/24 05/13/24 18:59 06:59 18:59 Output Total 360 720 Balance -360 -720 Output: Drainage 60 120 Right Lower Abdomen 60 120 Urine 300 600 Other: Voiding Method Indwelling Catheter Indwelling Catheter # Voids 1 - Labs CBC & Chem 7: 05/12/24 04:31 05/11/24 17:27 Labs: Abnormal Lab Results - Last 24 Hours (Table) 05/12/24 05/12/24 05/12/24 Range/Units 11:28 17:39 21:13 POC Glucose (mg/dL) 215 H 147 H 137 H (70-110) mg/dL 05/13/24 05/13/24 Range/Units 00:09 06:28 POC Glucose (mg/dL) 118 H 141 H (70-110) mg/dL
[2024-05-13 11:41] LABS: Basophils % (A) 0 %; Eosinophils # (A) 0.1 k/uL (0-0.7); Eosinophils % (A) 1 %; HCT 28.6 % (34.0-46.0); Lymphocytes # (A) 2.2 k/uL (1.0-4.8); Lymphocytes % (A) 22 %; MCH 30.8 pg (25.0-35.0); MCHC 31.9 g/dL (31.0-37.0); MCV 96.6 fL (80.0-100.0); Mean Platelet Volume 8.1; Monocytes # (A) 0.6 k/uL (0-1.0); Monocytes % (A) 6 %; Neutrophils # (A) 6.7 k/uL (1.3-7.7); Neutrophils % (A) 69 %; Platelet Count 219 k/uL (150-450); RBC 2.97 m/uL (3.80-5.40); RDW 13.1 % (11.5-15.5); WBC 9.8 k/uL (3.8-10.6)
[2024-05-13 11:49] LABS: HGB 9.1 gm/dL (11.4-16.0)
[2024-05-13 11:59] LABS: Glucose,Whole Blood 126 mg/dL (70-110)
--- NOTE | 2024-05-13 12:31 | P.PN ---
Subjective Progress Note Date: 05/13/24 Principal diagnosis: Reason for follow-up is appendicitis with phlegmon/peritonitis Patient is a 68-year-old female with a past medical history significant for diabetes mellitus hypertension hyperlipidemia reflux breast cancer presenting to the hospital for evaluation of abdominal pain, patient has been diagnosed with acute appendicitis with phlegmon formation in this patient who is status post laparoscopic ileocolic resection with anastomosis. On today's evaluation that is 05/13/2024, patient has been afebrile, patient is breathing comfortably and is currently on room air, patient denies having any significant cough no chest pain, patient denies nausea vomiting abdominal pain currently controlled with pain medication did not have a bowel movement and not passing any gas. Patient white count normalized to 9.8 this morning Objective - Vital Signs Vital signs: Vital Signs Temp 98.1 F 05/13/24 07:13 Pulse 84 05/13/24 07:13 Resp 18 05/13/24 07:13 BP 146/76 05/13/24 07:13 Pulse Ox 95 05/13/24 07:13 FiO2 Intake & Output 05/12/24 05/13/24 05/13/24 18:59 06:59 18:59 Output Total 360 720 Balance -360 -720 Output: Drainage 60 120 Right Lower Abdomen 60 120 Urine 300 600 Other: Voiding Method Indwelling Catheter Indwelling Catheter # Voids 1 - Exam GENERAL DESCRIPTION: An elderly female lying in bed in no distress RESPIRATORY SYSTEM: Unlabored breathing , decreased breath sounds at bases HEART: S1 S2 regular rate and rhythm , ABDOMEN: Mild distention and tenderness EXTREMITIES: No edema feet - Labs CBC & Chem 7: 05/13/24 11:21 05/11/24 17:27 Labs: Abnormal Lab Results - Last 24 Hours (Table) 05/12/24 05/12/24 05/13/24 Range/Units 17:39 21:13 00:09 RBC (3.80-5.40) m/uL Hgb (11.4-16.0) gm/dL Hct (34.0-46.0) % POC Glucose (mg/dL) 147 H 137 H 118 H (70-110) mg/dL 05/13/24 05/13/24 05/13/24 Range/Units 06:28 11:21 11:58 RBC 2.97 L (3.80-5.40) m/uL Hgb 9.1 L D (11.4-16.0) gm/dL Hct 28.6 L (34.0-46.0) % POC Glucose (mg/dL) 141 H 126 H (70-110) mg/dL Assessment and Plan (1) Acute appendicitis Current Visit: Yes Status: Acute Code(s): K35.80 - UNSPECIFIED ACUTE APPENDICITIS SNOMED Code(s): 17141547 (2) Leukocytosis Current Visit: Yes Status: Acute Code(s): D72.829 - ELEVATED WHITE BLOOD CELL COUNT, UNSPECIFIED SNOMED Code(s): 466471543 Plan: 1patient presented to hospital abdominal pain and this patient has been diagnosed with acute appendicitis status post laparoscopic ileocecectomy operative report did not mention any purulent drainage and no culture, we will need to cover for the enteric gram-negative both aerobes and anaerobes 2-leukocytosis more likely related to acute appendicitis with phlegmon, the patient white count normalized as of 05/13/2024 3-patient will be treated with Zosyn 3.375 g every 8 hour and monitor clinical course closely Dictation was produced using [employer] dictation software. please excuse any grammatical, word or spelling errors. Time with Patient: Less than 30
--- NOTE | 2024-05-13 14:48 | P.CONS ---
History of Present Illness - Reason for Consult Consult date: 05/13/24 - History of Present Illness 68 year old F with PMH of HTN, HLD, DM, Hypothyroid, Depression presents to the ED for abdominal pain. In the ED she underwent extensive evaluation. BP 148/89 HR 90, T 98.1F, 99% on RA, RR 18. CBC, Coag panel, CMP significant for WBC 14.7, bicarb 21, glu 140, Ca 10.3. Amylase 38, Lipase 62. Lactic acid 2.4-1. UA neg LE or nitrite. CT AP concerning for acute appendicitis. Patient was admitted to surgery, underwent laparoscopic ileocolic resection with extracorporal anastomosis (partial colectomy with removal of terminal ileum and anastomosis) with Dr. Hill. [facility] consulted on 05/13 for medical management of this patient. 05/13 Patient was seen and examined. NG tube in place draining bilious material. Patient reports 3/10 pain. Not passing gas or bowel movement yet. Maintained on Zosyn 3.75g IV TID. CBC RBC 2.97, Hg 9.1, Hct 28.6. General: non toxic, no distress, appears at stated age Derm: warm, dry Head: atraumatic, normocephalic, symmetric, NG tube in place Eyes: EOMI, no lid lag, anicteric sclera Mouth: no lip lesion, mucus membranes moist Cardiovascular: S1S2 reg, no murmur Lungs: CTA bilateral, no rhonchi, no rales , no accessory muscle use Abd: Absent bowel sounds Ext: no gross muscle atrophy, no edema, no contractures Neuro: no focal neuro deficits Psych: Alert, oriented, appropriate affect Based on my assessment of this patient, this patient meets a high complexity level of care. Appenditicits status post laparoscopic ileocolic resection with extracorporal anastomosis POD 1: Zosyn 3.75g IV TID. ID and Surgery on board. Acute blood loss anemia which is an expected result of surgery. HTN: BP 146/76. Atenolol 25 mg PO QHS. HLD: Lipitor 10 mg PO QHS. DM: Accuchecks ordered Q6H. Patient is NPO. Will hold insulin for now. Hypothyroid: Synthroid 112 mcg PO QD. Depression: Paxil 20 mg PO QD. CODE STATUS: FULL CODE DVT Prophylaxis: Heparin SQ. GI Prophylaxis: Designated medical POA if patient is not able to make medical decisions for themselves: I have reviewed the following internal consultant notes: Surgery, ID note. I have reviewed the results of the following tests: CBC I have ordered the following tests: I have discussed the care of this patient with the following independent historian: JOHNNIE. I have independently interpreted the following test below: I have discussed the management of this patient with the following physician: Past Medical History Past Medical History: Cancer, Diabetes Mellitus, GERD/Reflux, Hyperlipidemia, Hypertension, Osteoarthritis (OA), Thyroid Disorder Additional Past Medical History / Comment(s): HX BREAST CANCER ,VERTIGO,VARICOSE VEINS, HX OF GOITER WITH SURGERY., HX THYROID NODULE. History of Any Multi-Drug Resistant Organisms: None Reported Past Surgical History: Breast Surgery, Section, Cholecystectomy, Tubal Ligation Additional Past Surgical History / Comment(s): RT MASTECTOMY, GOITER REMOVED. COLONOSCOPY Past Anesthesia/Blood Transfusion Reactions: Postoperative Nausea & Vomiting (PONV) Past Psychological History: Anxiety, Depression Smoking Status: Current every day smoker Past Alcohol Use History: Rare Additional Past Alcohol Use History / Comment(s): SMOKES 1 PPD., SINCE AGE 14 Past Drug Use History: None Reported - Past Family History Mother Family Medical History: Cancer, CVA/TIA Additional Family Medical History / Comment(s): THROAT CA Father Family Medical History: Cancer Additional Family Medical History / Comment(s): CA COLON, PANCREATIC CANCER Brother(s) Family Medical History: Cancer Additional Family Medical History / Comment(s): BRAIN CA Medications and Allergies Home Medications Medication Instructions Recorded Confirmed Type Atorvastatin [Lipitor] 10 mg PO HS 11/07/13 05/11/24 History atenoloL [Tenormin] 25 mg PO HS 11/07/13 05/11/24 History Levothyroxine Sodium 112 mcg PO DAILY 04/21/21 05/11/24 History PARoxetine [Paxil] 20 mg PO HS 07/03/22 05/11/24 History glipiZIDE [Glucotrol] 5 mg PO HS 05/11/24 05/11/24 History metFORMIN HCL [Glucophage] 500 mg PO BID 05/11/24 05/11/24 History Allergies Allergy/AdvReac Type Severity Reaction Status Date / Time adhesive Allergy Unknown Rash/Hives Verified 05/11/24 19:57 Physical Exam Vitals: Vital Signs Temp Pulse Pulse Resp BP BP Pulse Ox 05/13/24 07:13 98.1 F 84 18 146/76 95 05/13/24 02:00 98.5 F 80 17 145/79 97 05/12/24 19:57 97.2 F L 77 17 122/78 99 Intake and Output 05/12/24 05/13/24 05/13/24 22:59 06:59 14:59 Output Total 300 720 60 Balance -300 -720 -60 Output: Drainage 120 60 Right Lower Abdomen 120 60 Urine 300 600 Other: Voiding Method Indwelling Catheter # Voids 1 Results CBC & Chem 7: 05/13/24 11:21 05/11/24 17:27 Labs: Abnormal Lab Results - Last 24 Hours (Table) 05/12/24 05/12/24 05/13/24 Range/Units 17:39 21:13 00:09 RBC (3.80-5.40) m/uL Hgb (11.4-16.0) gm/dL Hct (34.0-46.0) % POC Glucose (mg/dL) 147 H 137 H 118 H (70-110) mg/dL 05/13/24 05/13/24 05/13/24 Range/Units 06:28 11:21 11:58 RBC 2.97 L (3.80-5.40) m/uL Hgb 9.1 L D (11.4-16.0) gm/dL Hct 28.6 L (34.0-46.0) % POC Glucose (mg/dL) 141 H 126 H (70-110) mg/dL
[2024-05-13 18:07] LABS: Glucose,Whole Blood 119 mg/dL (70-110)
[2024-05-13 21:12] LABS: Glucose,Whole Blood 101 mg/dL (70-110)
[2024-05-13] MEDS: ATORVASTATIN 10 MG TAB PO SCH (21:22)
[2024-05-13] MEDS: atenoloL 25 MG TAB PO SCH (21:22)
[2024-05-14 00:12] LABS: Glucose,Whole Blood 105 mg/dL (70-110)
[2024-05-14 04:06] LABS: Basophils % (A) 1 %; Eosinophils # (A) 0.2 k/uL (0-0.7); Eosinophils % (A) 2 %; HCT 25.8 % (34.0-46.0); HGB 8.5 gm/dL (11.4-16.0); Hypochromasia Slight; Lymphocytes # (A) 2.1 k/uL (1.0-4.8); Lymphocytes % (A) 24 %; MCH 32.4 pg (25.0-35.0); MCHC 32.8 g/dL (31.0-37.0); MCV 98.7 fL (80.0-100.0); Mean Platelet Volume 7.5; Monocytes # (A) 0.5 k/uL (0-1.0); Monocytes % (A) 5 %; Neutrophils # (A) 5.7 k/uL (1.3-7.7); Neutrophils % (A) 66 %; Platelet Count 208 k/uL (150-450); RBC 2.62 m/uL (3.80-5.40); RDW 12.5 % (11.5-15.5); WBC 8.6 k/uL (3.8-10.6)
[2024-05-14 04:23] LABS: African American GFR (CKD) 84 (>60 ml/min/1.73 sqM); Anion Gap 5 mmol/L; Blood Urea Nitrogen 9 mg/dL (7-17); Calcium 8.6 mg/dL (8.4-10.2); Carbon Dioxide 20 mmol/L (22-30); Chloride 114 mmol/L (98-107); Glucose 83 mg/dL (74-99); Non-African American GFR(CKD) 73 (>60 ml/min/1.73 sqM); Sodium 139 mmol/L (137-145)
[2024-05-14 06:31] LABS: Glucose,Whole Blood 76 mg/dL (70-110)
[2024-05-14 11:59] LABS: Glucose,Whole Blood 86 mg/dL (70-110)
--- NOTE | 2024-05-14 12:09 | P.PN ---
Subjective Progress Note Date: 05/14/24 68 year old F with PMH of HTN, HLD, DM, Hypothyroid, Depression presents to the ED for abdominal pain. In the ED she underwent extensive evaluation. BP 148/89 HR 90, T 98.1F, 99% on RA, RR 18. CBC, Coag panel, CMP significant for WBC 14.7, bicarb 21, glu 140, Ca 10.3. Amylase 38, Lipase 62. Lactic acid 2.4-1. UA neg LE or nitrite. CT AP concerning for acute appendicitis. Patient was admitted to surgery, underwent laparoscopic ileocolic resection with extracorporal anastomosis (partial colectomy with removal of terminal ileum and anastomosis) with Dr. Hill. [facility] consulted on 05/13 for medical management of this patient. 05/13 Patient was seen and examined. NG tube in place draining bilious material. Patient reports 08/12 pain. Not passing gas or bowel movement yet. Maintained on Zosyn 3.75g IV TID. CBC RBC 2.97, Hg 9.1, Hct 28.6. 05/14 Patient was seen and examined. NG tube in place. Not passing gas or bowel movement yet. Maintained on Zosyn 3.75g IV TID. CBC and BMP significant for RBC 2.62, Hg 8.5, Hct 25.8, Cl 114, bicarb 20. General: non toxic, no distress, appears at stated age Derm: warm, dry Head: atraumatic, normocephalic, symmetric, NG tube in place Eyes: EOMI, no lid lag, anicteric sclera Mouth: no lip lesion, mucus membranes moist Cardiovascular: S1S2 reg, no murmur Lungs: CTA bilateral, no rhonchi, no rales , no accessory muscle use Abd: Absent bowel sounds Ext: no gross muscle atrophy, no edema, no contractures Neuro: no focal neuro deficits Psych: Alert, oriented, appropriate affect Based on my assessment of this patient, this patient meets a high complexity level of care. Appenditicits status post laparoscopic ileocolic resection with extracorporal anastomosis POD 2: Zosyn 3.75g IV TID (D3). Discussed with Fabienne CONNOLLY, plans to add Reglan. ID and Surgery on board. Acute blood loss anemia which is an expected result of surgery. HTN: BP 138/70. Atenolol 25 mg PO QHS. HLD: Lipitor 10 mg PO QHS. DM: Accuchecks ordered Q6H. Patient is NPO. Will hold insulin for now. Hypothyroid: Synthroid 112 mcg PO QD. Depression: Paxil 20 mg PO QD. CODE STATUS: FULL CODE DVT Prophylaxis: Heparin SQ. GI Prophylaxis: Designated medical POA if patient is not able to make medical decisions for themselves: I have reviewed the following outplacement consultant notes: Surgery, ID note. I have reviewed the results of the following tests: CBC, BMP. I have ordered the following tests: Mag. I have discussed the care of this patient with the following independent historian: RN. I have independently interpreted the following test below: I have discussed the management of this patient with the following physician: Fabienne CONNOLLY. Objective - Vital Signs Vital signs: Vital Signs Temp 97.4 F L 05/14/24 07:03 Pulse 64 05/14/24 07:03 Resp 18 05/14/24 10:00 BP 138/70 05/14/24 07:03 Pulse Ox 93 L 05/14/24 07:03 FiO2 Intake & Output 05/13/24 05/14/24 05/14/24 18:59 06:59 18:59 Output Total 211 200 Balance -211 -200 Output: Gastric Drainage 150 100 Drainage 60 100 Right Lower Abdomen 60 100 Urine 1 Other: Voiding Method Toilet Indwelling Catheter # Voids 1 1 1 - Labs CBC & Chem 7: 05/14/24 03:02 05/14/24 03:02 Labs: Abnormal Lab Results - Last 24 Hours (Table) 05/13/24 05/14/24 05/14/24 Range/Units 18:05 03:02 03:02 RBC 2.62 L (3.80-5.40) m/uL Hgb 8.5 L (11.4-16.0) gm/dL Hct 25.8 L (34.0-46.0) % Chloride 114 H (98-107) mmol/L Carbon Dioxide 20 L (22-30) mmol/L POC Glucose (mg/dL) 119 H (70-110) mg/dL
[2024-05-14] MEDS: METOCLOPRAMIDE 5 MG/ML 2 ML VIAL IVP SCH (12:46)
--- NOTE | 2024-05-14 12:50 | P.PN ---
Subjective Progress Note Date: 05/14/24 Principal diagnosis: Reason for follow-up is appendicitis with phlegmon/peritonitis Patient is a 68-year-old female with a past medical history significant for diabetes mellitus hypertension hyperlipidemia reflux breast cancer presenting to the hospital for evaluation of abdominal pain, patient has been diagnosed with acute appendicitis with phlegmon formation in this patient who is status post laparoscopic ileocolic resection with anastomosis. On today's evaluation that is 05/14/2024, Patient is afebrile this morning patient denies having any chest pain shortness of breath or cough, the patient is currently on room air, patient abdominal pain is currently controlled still have the NG has not passed any gas and no bowel movement as reported by the nursing staff. Patient white count is 8.6, creatinine 0.82 Objective - Vital Signs Vital signs: Vital Signs Temp 97.4 F L 05/14/24 07:03 Pulse 64 05/14/24 07:03 Resp 18 05/14/24 10:00 BP 138/70 05/14/24 07:03 Pulse Ox 93 L 05/14/24 07:03 FiO2 Intake & Output 05/13/24 05/14/24 05/14/24 18:59 06:59 18:59 Output Total 211 200 Balance -211 -200 Output: Gastric Drainage 150 100 Drainage 60 100 Right Lower Abdomen 60 100 Urine 1 Other: Voiding Method Toilet Indwelling Catheter # Voids 1 1 1 - Exam GENERAL DESCRIPTION: An elderly female lying in bed in no distress RESPIRATORY SYSTEM: Unlabored breathing , decreased breath sounds at bases HEART: S1 S2 regular rate and rhythm , ABDOMEN: Mild distention and tenderness EXTREMITIES: No edema feet - Labs CBC & Chem 7: 05/14/24 03:02 05/14/24 03:02 Labs: Abnormal Lab Results - Last 24 Hours (Table) 05/13/24 05/14/24 05/14/24 Range/Units 18:05 03:02 03:02 RBC 2.62 L (3.80-5.40) m/uL Hgb 8.5 L (11.4-16.0) gm/dL Hct 25.8 L (34.0-46.0) % Chloride 114 H (98-107) mmol/L Carbon Dioxide 20 L (22-30) mmol/L POC Glucose (mg/dL) 119 H (70-110) mg/dL Assessment and Plan (1) Acute appendicitis Current Visit: Yes Status: Acute Code(s): K35.80 - UNSPECIFIED ACUTE APPENDICITIS SNOMED Code(s): 28546329 (2) Leukocytosis Current Visit: Yes Status: Acute Code(s): D72.829 - ELEVATED WHITE BLOOD CELL COUNT, UNSPECIFIED SNOMED Code(s): 342609239 Plan: 1patient presented to hospital abdominal pain and this patient has been diagnosed with acute appendicitis status post laparoscopic ileocecectomy operative report did not mention any purulent drainage and no culture, we will need to cover for the enteric gram-negative both aerobes and anaerobes 2-leukocytosis more likely related to acute appendicitis with phlegmon, the patient white count normalized as of 05/13/2024 3-patient currently adequately being treated with Zosyn 3.375 g every 8 hour and will monitor clinical course closely Dictation was produced using [employer] dictation software. please excuse any grammatical, word or spelling errors. Time with Patient: Less than 30
--- NOTE | 2024-05-14 14:21 | P.PN ---
Subjective Progress Note Date: 05/14/24 SURGICAL PROGRESS NOTE CHIEF COMPLAINT: Appendiceal phlegmon HISTORY OF PRESENT ILLNESS: Patient is postop day #4 status post laparoscopic ileocolic resection with extracorporeal anastomosis. Patient with 100 mL output through the NG tube. She still denies any bowel activity. She has been having nausea. Afebrile. WBC is 8.6 Hgb 9.1 down to 8.5 ALAINA drain 100 mL sanguinous output. Patient reports urinating without difficulty. PHYSICAL EXAM: VITAL SIGNS: Reviewed. GENERAL: Well-developed in no acute distress. ABDOMEN: Soft. Nondistended. Incision site clean dry and intact. ALAINA drain with sanguinous output. NEUROLOGIC: Alert and oriented. Cranial nerves II through XII grossly intact. ASSESSMENT: 1. Appendiceal phlegmon PLAN: -Discontinue NG tube -Keep patient n.p.o. -Start Reglan 10 mg IV every 6 hours scheduled. Paxil discontinued due to its interaction with the Reglan. Discussed with medicine service -Continue to monitor ALAINA drain output -Continue antibiotics per infectious disease -Encourage incentive spirometer use -Encourage patient to increase activity level Physician Aviation Survival Technician note has been reviewed by physician. Signing provider agrees with the documented findings, assessment, and plan of care. Objective - Vital Signs Vital signs: Vital Signs Temp 97.4 F L 05/14/24 07:03 Pulse 64 05/14/24 07:03 Resp 18 05/14/24 10:00 BP 138/70 05/14/24 07:03 Pulse Ox 93 L 05/14/24 07:03 FiO2 Intake & Output 05/13/24 05/14/24 05/14/24 18:59 06:59 18:59 Output Total 211 200 Balance -211 -200 Output: Gastric Drainage 150 100 Drainage 60 100 Right Lower Abdomen 60 100 Urine 1 Other: Voiding Method Toilet Indwelling Catheter # Voids 1 1 1 - Labs CBC & Chem 7: 05/14/24 03:02 05/14/24 03:02 Labs: Abnormal Lab Results - Last 24 Hours (Table) 05/13/24 05/14/24 05/14/24 Range/Units 18:05 03:02 03:02 RBC 2.62 L (3.80-5.40) m/uL Hgb 8.5 L (11.4-16.0) gm/dL Hct 25.8 L (34.0-46.0) % Chloride 114 H (98-107) mmol/L Carbon Dioxide 20 L (22-30) mmol/L POC Glucose (mg/dL) 119 H (70-110) mg/dL
[2024-05-14 18:05] LABS: Glucose,Whole Blood 81 mg/dL (70-110)
[2024-05-15 00:13] LABS: Glucose,Whole Blood 79 mg/dL (70-110)
[2024-05-15] MEDS: ACETAMINOPHEN TAB 325 MG TAB PO PRN (01:44)
[2024-05-15 06:08] LABS: Glucose,Whole Blood 107 mg/dL (70-110)
[2024-05-15 09:49] LABS: Basophils % (A) 0 %; Eosinophils # (A) 0.2 k/uL (0-0.7); Eosinophils % (A) 3 %; HCT 28.2 % (34.0-46.0); HGB 9.3 gm/dL (11.4-16.0); Lymphocytes # (A) 1.7 k/uL (1.0-4.8); Lymphocytes % (A) 22 %; MCH 31.6 pg (25.0-35.0); MCV 95.8 fL (80.0-100.0); Mean Platelet Volume 7.4; Monocytes # (A) 0.5 k/uL (0-1.0); Monocytes % (A) 7 %; Neutrophils # (A) 5.3 k/uL (1.3-7.7); Neutrophils % (A) 67 %; Platelet Count 255 k/uL (150-450); RBC 2.95 m/uL (3.80-5.40); RDW 12.3 % (11.5-15.5); WBC 7.9 k/uL (3.8-10.6)
[2024-05-15 10:05] LABS: African American GFR (CKD) 89 (>60 ml/min/1.73 sqM); Anion Gap 4 mmol/L; Blood Urea Nitrogen 9 mg/dL (7-17); Calcium 9.2 mg/dL (8.4-10.2); Carbon Dioxide 24 mmol/L (22-30); Chloride 110 mmol/L (98-107); Glucose 137 mg/dL (74-99); Non-African American GFR(CKD) 77 (>60 ml/min/1.73 sqM); Potassium 3.6 mmol/L (3.5-5.1); Sodium 138 mmol/L (137-145)
[2024-05-15] MEDS ORDERED: DEXTROSE 50% SYRINGE 50 ML IVP PRN ×2 (10:30)
[2024-05-15 11:32] LABS: Glucose,Whole Blood 114 mg/dL (70-110)
--- NOTE | 2024-05-15 11:36 | P.PN ---
Subjective Progress Note Date: 05/15/24 68 year old F with PMH of HTN, HLD, DM, Hypothyroid, Depression presents to the ED for abdominal pain. In the ED she underwent extensive evaluation. BP 148/89 HR 90, T 98.1F, 99% on RA, RR 18. CBC, Coag panel, CMP significant for WBC 14.7, bicarb 21, glu 140, Ca 10.3. Amylase 38, Lipase 62. Lactic acid 2.4-1. UA neg LE or nitrite. CT AP concerning for acute appendicitis. Patient was admitted to surgery, underwent laparoscopic ileocolic resection with extracorporal anastomosis (partial colectomy with removal of terminal ileum and anastomosis) with Dr. Hill. [facility] consulted on 05/13 for medical management of this patient. 05/13 Patient was seen and examined. NG tube in place draining bilious material. Patient reports 08/12 pain. Not passing gas or bowel movement yet. Maintained on Zosyn 3.75g IV TID. CBC RBC 2.97, Hg 9.1, Hct 28.6. 05/14 Patient was seen and examined. NG tube in place. Not passing gas or bowel movement yet. Maintained on Zosyn 3.75g IV TID. CBC and BMP significant for RBC 2.62, Hg 8.5, Hct 25.8, Cl 114, bicarb 20. 05/15. Patient seen and examined at bedside. No acute events overnight. No significant complaints today. Patient states she is passing flatus, has not had a bowel movement yet. NG tube has been removed. Maintained on Zosyn day 4. CBC today significant for RBCs 2.95, hemoglobin 9.3, hematocrit 28.2. BMP: Sodium 138, potassium 3.6, chloride 110, CO2 24, glucose 137. Pertinent positives and negatives discussed above, a complete review of systems was performed and all the other systems were negative. Physical examination: Vital signs reviewed General: Nontoxic, no distress, appears stated age, well-appearing Derm: Warm, dry, intact Head: Atraumatic, normocephalic, symmetric Eyes: EOMI, anicteric sclera Mouth: No lip lesion, mucus membranes moist Cardiovascular: S1-S2 regular, no murmur Lungs: CTA bilateral, no rhonchi, no rales, no accessory muscle use Abdominal: Soft, nondistended, mildly tender to palpation at surgical sites, bowel sounds present Extremities: No cyanosis, clubbing, or pedal edema. Neuro: Alert, oriented x 3, gross neurological examination did not reveal any focal deficits. Cranial nerves II to XII grossly intact. Psych: Appropriate affect and mood Assessment and Plan: Patient is a 68-year-old female with PMH of hypertension, hyperlipidemia, diabetes mellitus, hypothyroidism, depression admitted for acute appendicitis. Active #. Sepsis, present on admission # acute appendicitis, status post laparoscopic ileocolic resection with extracorporeal anastomosis postop day 3 IV Zosyn 3.75 g 3 times daily, day 4 Consider one week of oral antibiotics at the time of discharge Surgery following Infectious disease following #. Acute blood loss anemia, which is an expected result of surgery Transfuse if hemoglobin < 7 Chronic #. Hypertension Atenolol 25 mg PO nightly #. Hyperlipidemia Lipitor 10 mg PO nightly #. Diabetes mellitus Accu-Cheks every 6 hours Insulin sliding scale Monitor for hypoglycemia #. Hypothyroidism Synthroid 112 mcg PO daily #. Depression Paxil 20 mg PO daily F: No restrictions E: Replete if needed N: Clear liquids A: Ambulatory DVT prophylaxis: Subcutaneous heparin Code status: Full code Anticipated discharge place: Home Thank you for allowing us to participate in the care of this pleasant patient. Do not hesitate to contact us with questions. Someone can be reached from the [facility] hospitalist group all hours of the day at [phone] or via perfect serve. I have seen and evaluated the patient today. Discussed with the resident and agree with the residents finding and plan as documented in the resident's note. Changes highlighted in blue font. Objective - Vital Signs Vital signs: Vital Signs Temp 97.5 F L 05/15/24 07:46 Pulse 62 05/15/24 07:46 Resp 18 05/15/24 07:46 BP 179/77 05/15/24 07:46 Pulse Ox 97 05/15/24 07:46 FiO2 Intake & Output 05/14/24 05/15/24 05/15/24 18:59 06:59 18:59 Intake Total 20 Output Total 160 Balance 20 -160 Intake: Oral 20 Output: Drainage 160 Right Lower Abdomen 160 Other: Voiding Method Indwelling Catheter Toilet # Voids 2 3 - Labs CBC & Chem 7: 05/15/24 09:28 05/15/24 09:28
--- NOTE | 2024-05-15 11:37 | P.PN ---
Subjective Progress Note Date: 05/15/24 SURGICAL PROGRESS NOTE CHIEF COMPLAINT: Appendiceal phlegmon HISTORY OF PRESENT ILLNESS: Patient is postop day #5 status post laparoscopic ileocolic resection with extracorporeal anastomosis. Patient's pain is controlled. She is having flatus. Denies any nausea or vomiting. Afebrile. WBC is 7.9 Hgb up from 8.5 to 9.3 platelets 255 creatinine 0.7. ALAINA drain with sanguinous output 130 mL during the night and 30 this morning PHYSICAL EXAM: VITAL SIGNS: Reviewed. GENERAL: Well-developed in no acute distress. ABDOMEN: Soft. Nondistended. Incision site clean dry and intact. ALAINA drain with sanguinous output. NEUROLOGIC: Alert and oriented. Cranial nerves II through XII grossly intact. ASSESSMENT: 1. Appendiceal phlegmon PLAN: -Advance diet to clear liquids -Continue Reglan -Continue to monitor ALAINA drain output -Continue antibiotics per infectious disease -Encourage incentive spirometer use -Encourage patient to increase activity level Physician Community Engagement Manager note has been reviewed by physician. Signing provider agrees with the documented findings, assessment, and plan of care. Objective - Vital Signs Vital signs: Vital Signs Temp 97.5 F L 05/15/24 07:46 Pulse 62 05/15/24 07:46 Resp 18 05/15/24 07:46 BP 179/77 05/15/24 07:46 Pulse Ox 97 05/15/24 07:46 FiO2 Intake & Output 05/14/24 05/15/24 05/15/24 18:59 06:59 18:59 Intake Total 20 Output Total 160 Balance 20 -160 Intake: Oral 20 Output: Drainage 160 Right Lower Abdomen 160 Other: Voiding Method Indwelling Catheter Toilet # Voids 2 3 - Labs CBC & Chem 7: 05/15/24 09:28 05/15/24 09:28 Labs: Abnormal Lab Results - Last 24 Hours (Table) 05/15/24 05/15/24 05/15/24 Range/Units 09:28 09:28 11:28 RBC 2.95 L (3.80-5.40) m/uL Hgb 9.3 L (11.4-16.0) gm/dL Hct 28.2 L (34.0-46.0) % Chloride 110 H (98-107) mmol/L Glucose 137 H (74-99) mg/dL POC Glucose (mg/dL) 114 H (70-110) mg/dL
[2024-05-15] MEDS: INSULIN ASPART (NovoLOG) 100 UNIT/ML VIAL SQ SCH (12:47)
[2024-05-15 16:23] LABS: Glucose,Whole Blood 133 mg/dL (70-110)
[2024-05-15] MEDS: PARoxetine 20 MG TAB PO SCH (20:05)
[2024-05-16 01:10] LABS: Glucose,Whole Blood 137 mg/dL (70-110)
[2024-05-16] MEDS: cloNIDine HCL 0.2 MG TAB PO STA (01:35)
[2024-05-16 06:33] LABS: Glucose,Whole Blood 124 mg/dL (70-110)
[2024-05-16 08:37] LABS: Basophils # (A) 0.05 X 10*3/uL (0.00-0.10); Basophils % (A) 0.8 %; Eosinophils # (A) 0.25 X 10*3/uL (0.04-0.35); Eosinophils % (A) 3.9 %; HCT 25.5 % (37.2-46.3); HGB 8.3 g/dL (12.0-15.0); Lymphocytes # (A) 1.89 X 10*3/uL (0.90-5.00); Lymphocytes % (A) 29.8 %; MCH 31.1 pg (27.0-32.0); MCHC 32.5 g/dL (32.0-37.0); MCV 95.5 FL (80.0-97.0); Mean Platelet Volume 10.1 FL (9.5-12.2); Monocytes # (A) 0.58 X 10*3/uL (0.20-1.00); Monocytes % (A) 9.1 %; NRBC Per 100 WBC 0 X 10*3/uL (0.00-0.01); Neutrophils # (A) 3.54 X 10*3/uL (1.80-7.70); Neutrophils % (A) 55.9 %; Platelet Count 253 X 10*3/uL (140-440); RBC 2.67 X 10*6/uL (4.10-5.20); RDW 12.4 % (11.5-14.5); WBC 6.34 X 10*3/uL (4.50-10.00)
[2024-05-16 08:57] LABS: BUN/Creat Ratio 6.56 Ratio (12.00-20.00); Blood Urea Nitrogen 5.9 mg/dL (9.0-27.0); Calcium 8.7 mg/dL (8.7-10.3); Chloride 108 mmol/L (96-109); Glucose 134 mg/dL (70-110); Potassium 3.5 mmol/L (3.5-5.5); Sodium 141 mmol/L (135-145)
[2024-05-16 11:40] LABS: Glucose,Whole Blood 129 mg/dL (70-110)
--- NOTE | 2024-05-16 13:19 | P.PN ---
Subjective Progress Note Date: 05/16/24 Principal diagnosis: Reason for follow-up is appendicitis with phlegmon/peritonitis Patient is a 68-year-old female with a past medical history significant for diabetes mellitus hypertension hyperlipidemia reflux breast cancer presenting to the hospital for evaluation of abdominal pain, patient has been diagnosed with acute appendicitis with phlegmon formation in this patient who is status post laparoscopic ileocolic resection with anastomosis. On today's evaluation that is 05/16/2024,the patient remains to be afebrile, patient is on room air not requiring supplemental oxygen and denies any shortness of breath no chest pain or cough.Patient denies having any nausea or vomiting, no abdominal pain did have some loose stools no blood or mucus in the stools overall feeling better. Patient white count 6.34, creatinine 0.9 Objective - Vital Signs Vital signs: Vital Signs Temp 97.3 F L 05/16/24 07:11 Pulse 84 05/16/24 09:51 Resp 17 05/16/24 09:51 BP 154/83 05/16/24 07:11 Pulse Ox 99 05/16/24 07:11 FiO2 Intake & Output 05/15/24 05/16/24 05/16/24 18:59 06:59 18:59 Output Total 960 30 30 Balance -960 -30 -30 Output: Drainage 60 30 30 Right Lower Abdomen 60 30 30 Urine 900 Other: Voiding Method Toilet Toilet Toilet # Voids 3 1 - Exam GENERAL DESCRIPTION: An elderly female lying in bed in no distress RESPIRATORY SYSTEM: Unlabored breathing , decreased breath sounds at bases HEART: S1 S2 regular rate and rhythm , ABDOMEN: Mild distention and tenderness EXTREMITIES: No edema feet - Labs CBC & Chem 7: 05/16/24 04:20 05/16/24 04:20 Labs: Abnormal Lab Results - Last 24 Hours (Table) 05/15/24 05/16/24 05/16/24 Range/Units 16:18 01:06 04:20 RBC 2.67 L (4.10-5.20) X 10*6/uL Hgb 8.3 L (12.0-15.0) g/dL Hct 25.5 L (37.2-46.3) % BUN (9.0-27.0) mg/dL BUN/Creatinine Ratio (12.00-20.00) Ratio Glucose (70-110) mg/dL POC Glucose (mg/dL) 133 H 137 H (70-110) mg/dL 05/16/24 05/16/24 05/16/24 Range/Units 04:20 06:31 11:36 RBC (4.10-5.20) X 10*6/uL Hgb (12.0-15.0) g/dL Hct (37.2-46.3) % BUN 5.9 L (9.0-27.0) mg/dL BUN/Creatinine Ratio 6.56 L (12.00-20.00) Ratio Glucose 134 H (70-110) mg/dL POC Glucose (mg/dL) 124 H 129 H (70-110) mg/dL Assessment and Plan (1) Acute appendicitis Current Visit: Yes Status: Acute Code(s): K35.80 - UNSPECIFIED ACUTE APPENDICITIS SNOMED Code(s): 65191564 (2) Leukocytosis Current Visit: Yes Status: Acute Code(s): D72.829 - ELEVATED WHITE BLOOD CELL COUNT, UNSPECIFIED SNOMED Code(s): 048425989 Plan: 1patient presented to hospital abdominal pain and this patient has been diagnosed with acute appendicitis status post laparoscopic ileocecectomy operative report did not mention any purulent drainage and no culture, we will need to cover for the enteric gram-negative both aerobes and anaerobes 2-leukocytosis more likely related to acute appendicitis with phlegmon, the patient white count normalized as of 05/13/2024 3-patient is afebrile and has shown clinical improvement we will continue Zosyn while inpatient finishing therapy with oral Ceftin and Flagyl x 10 days on discharge Dictation was produced using [employer] dictation software. please excuse any grammatical, word or spelling errors. Time with Patient: Less than 30
--- NOTE | 2024-05-16 13:19 | P.PN ---
Subjective Progress Note Date: 05/15/24 Principal diagnosis: Reason for follow-up is appendicitis with phlegmon/peritonitis Patient is a 68-year-old female with a past medical history significant for diabetes mellitus hypertension hyperlipidemia reflux breast cancer presenting to the hospital for evaluation of abdominal pain, patient has been diagnosed with acute appendicitis with phlegmon formation in this patient who is status post laparoscopic ileocolic resection with anastomosis. On today's evaluation that is 05/15/2024,the patient denies any fever or any chills, patient is breathing comfortably on room air, the patient denies chest pain shortness of breath and no significant cough, patient abdominal pain has decreased in intensity and she has been discontinued and having bowel movement. Patient white count is 7.9 creatinine 0.79 Objective - Vital Signs Vital signs: Vital Signs Temp 97.5 F L 05/15/24 07:46 Pulse 84 05/15/24 08:55 Resp 18 05/15/24 08:55 BP 179/77 05/15/24 07:46 Pulse Ox 97 05/15/24 07:46 FiO2 Intake & Output 05/14/24 05/15/24 05/15/24 18:59 06:59 18:59 Intake Total 20 Output Total 160 20 Balance 20 -160 -20 Intake: Oral 20 Output: Drainage 160 20 Right Lower Abdomen 160 20 Other: Voiding Method Indwelling Catheter Toilet Toilet # Voids 2 3 - Exam GENERAL DESCRIPTION: An elderly female lying in bed in no distress RESPIRATORY SYSTEM: Unlabored breathing , decreased breath sounds at bases HEART: S1 S2 regular rate and rhythm , ABDOMEN: Mild distention and tenderness EXTREMITIES: No edema feet - Labs CBC & Chem 7: 05/16/24 04:20 05/16/24 04:20 Labs: Abnormal Lab Results - Last 24 Hours (Table) 05/15/24 05/15/24 05/15/24 Range/Units 09:28 09:28 11:28 RBC 2.95 L (3.80-5.40) m/uL Hgb 9.3 L (11.4-16.0) gm/dL Hct 28.2 L (34.0-46.0) % Chloride 110 H (98-107) mmol/L Glucose 137 H (74-99) mg/dL POC Glucose (mg/dL) 114 H (70-110) mg/dL Assessment and Plan (1) Acute appendicitis Current Visit: Yes Status: Acute Code(s): K35.80 - UNSPECIFIED ACUTE APPENDICITIS SNOMED Code(s): 54839917 (2) Leukocytosis Current Visit: Yes Status: Acute Code(s): D72.829 - ELEVATED WHITE BLOOD CELL COUNT, UNSPECIFIED SNOMED Code(s): 434404901 Plan: 1patient presented to hospital abdominal pain and this patient has been diagnosed with acute appendicitis status post laparoscopic ileocecectomy operative report did not mention any purulent drainage and no culture, we will need to cover for the enteric gram-negative both aerobes and anaerobes 2-leukocytosis more likely related to acute appendicitis with phlegmon, the patient white count normalized as of 05/13/2024 3-patient is afebrile feeling better, currently treated with Zosyn 3.375 g every 8 hour and continue supportive care Dictation was produced using [employer] dictation software. please excuse any grammatical, word or spelling errors. Time with Patient: Less than 30
[2024-05-16 13:28] VITALS: BMI 28.3
--- NOTE | 2024-05-16 14:04 | P.DS ---
Providers Date of admission: 05/11/24 19:28 Expected date of discharge: 05/16/24 Attending physician: Tim Hill MD Consults: 05/12/24 09:17 Consult Physician Routine Consulting Provider: Bill Sharma Consult Reason/Comments: appendicitis Do you want consulting provider notified?: Yes 05/13/24 07:51 Consult Physician Routine Consulting Provider: Foreign Hutchinson Consult Reason/Comments: appendicitis Do you want consulting provider notified?: Already Contacted 05/13/24 08:06 Consult Physician Routine Consulting Provider: Alex Farrar Consult Reason/Comments: medical management Do you want consulting provider notified?: Yes Primary care physician: Meng Joe MD Hospital Course: Discharge diagnosis 1. Appendiceal phlegmon 2. Anemia likely dilutional Hospital course This is a 68-year-old female who presented with right sided abdominal pain. CAT scan findings concerning for appendicitis. Patient is status post laparoscopic ileocolic resection with extracorporal anastomosis (partial colectomy with removal of terminal ileum and anastomosis). Patient tolerated surgery well. Her pain is controlled. She is tolerating diet. She is having bowel movements. She is afebrile. She has been up and ambulating. She is stable for discharge. She is discharged with oral antibiotics as recommended per ID service. Please refer to chart for any further details. Physician Enterostomal Therapy Nurse note has been reviewed by physician. Signing provider agrees with the documented findings, assessment, and plan of care. Patient Condition at Discharge: Stable Plan - Discharge Summary New Discharge Prescriptions: New Ibuprofen [Motrin] 600 mg PO Q8HR PRN #30 tab PRN Reason: Pain cefuroxime axetiL [Ceftin] 500 mg PO BID #20 tab metroNIDAZOLE [Flagyl] 500 mg PO TID 10 Days #30 tab Acetaminophen Tab [Tylenol Tab] 650 mg PO Q4H PRN #30 tablet PRN Reason: Pain Continue Atorvastatin [Lipitor] 10 mg PO HS atenoloL [Tenormin] 25 mg PO HS Levothyroxine Sodium 112 mcg PO DAILY glipiZIDE [Glucotrol] 5 mg PO HS PARoxetine [Paxil] 20 mg PO HS metFORMIN HCL [Glucophage] 500 mg PO BID Discharge Medication List Atorvastatin [Lipitor] 10 mg PO HS 11/07/13 [History] atenoloL [Tenormin] 25 mg PO HS 11/07/13 [History] Levothyroxine Sodium 112 mcg PO DAILY 04/21/21 [History] PARoxetine [Paxil] 20 mg PO HS 07/03/22 [History] glipiZIDE [Glucotrol] 5 mg PO HS 05/11/24 [History] metFORMIN HCL [Glucophage] 500 mg PO BID 05/11/24 [History] Acetaminophen Tab [Tylenol Tab] 650 mg PO Q4H PRN #30 tablet 05/16/24 [Rx] Ibuprofen [Motrin] 600 mg PO Q8HR PRN #30 tab 05/16/24 [Rx] cefuroxime axetiL [Ceftin] 500 mg PO BID #20 tab 05/16/24 [Rx] metroNIDAZOLE [Flagyl] 500 mg PO TID 10 Days #30 tab 05/16/24 [Rx] Follow up Appointment(s)/Referral(s): Meng Joe MD [Primary Care Provider] - 1-2 days Foreign Hutchinson MD [STAFF PHYSICIAN] - 1 Week Activity/Diet/Wound Care/Special Instructions: No lifting over 10 pounds You may shower. No soaking or tub baths for 2 weeks Very light activity until you are reevaluated at your follow up appointment with your surgeon Keep a log of ALAINA drain output and bring with you to your follow-up appointment Milk/strip drains 2-3 times a day Advance diet as tolerated at home Discharge Disposition: HOME SELF-CARE
[2024-05-16 14:13] VITALS: BP 145/74; PULSE 54; RESP 18; TEMP 97.2
--- NOTE | 2024-05-16 15:10 | P.PN ---
Subjective Progress Note Date: 05/16/24 68 year old F with PMH of HTN, HLD, DM, Hypothyroid, Depression presents to the ED for abdominal pain. In the ED she underwent extensive evaluation. BP 148/89 HR 90, T 98.1F, 99% on RA, RR 18. CBC, Coag panel, CMP significant for WBC 14.7, bicarb 21, glu 140, Ca 10.3. Amylase 38, Lipase 62. Lactic acid 2.4-1. UA neg LE or nitrite. CT AP concerning for acute appendicitis. Patient was admitted to surgery, underwent laparoscopic ileocolic resection with extracorporal anastomosis (partial colectomy with removal of terminal ileum and anastomosis) with Dr. Hill. [facility] consulted on 05/13 for medical management of this patient. 05/13 Patient was seen and examined. NG tube in place draining bilious material. Patient reports 08/12 pain. Not passing gas or bowel movement yet. Maintained on Zosyn 3.75g IV TID. CBC RBC 2.97, Hg 9.1, Hct 28.6. 05/14 Patient was seen and examined. NG tube in place. Not passing gas or bowel movement yet. Maintained on Zosyn 3.75g IV TID. CBC and BMP significant for RBC 2.62, Hg 8.5, Hct 25.8, Cl 114, bicarb 20. 05/15. Patient seen and examined at bedside. No acute events overnight. No significant complaints today. Patient states she is passing flatus, has not had a bowel movement yet. NG tube has been removed. Maintained on Zosyn day 4. CBC today significant for RBCs 2.95, hemoglobin 9.3, hematocrit 28.2. BMP: Sodium 138, potassium 3.6, chloride 110, CO2 24, glucose 137. 05/16. Patient seen and examined sitting up in chair. No acute events overnight. No complaints today. Patient passing flatus and has had a bowel movement. Maintained on Zosyn day 5. Labs today: WBC 6.34, hemoglobin 8.3, hematocrit 25.5, sodium 141, potassium 3.5, chloride 108, CO2 25, BUN 5.9, creatinine 0.9, glucose 134. Pertinent positives and negatives discussed above, a complete review of systems was performed and all the other systems were negative. Physical examination: Vital signs reviewed General: Nontoxic, no distress, appears stated age, well-appearing Derm: Warm, dry, intact Head: Atraumatic, normocephalic, symmetric Eyes: EOMI, anicteric sclera Mouth: No lip lesion, mucus membranes moist Cardiovascular: S1-S2 regular, no murmur Lungs: CTA bilateral, no rhonchi, no rales, no accessory muscle use Abdominal: Soft, nondistended, mildly tender to palpation at surgical sites, bowel sounds present Extremities: No cyanosis, clubbing, or pedal edema. Neuro: Alert, oriented x 3, gross neurological examination did not reveal any focal deficits. Cranial nerves II to XII grossly intact. Psych: Appropriate affect and mood Assessment and Plan: Patient is a 68-year-old female with PMH of hypertension, hyperlipidemia, diabetes mellitus, hypothyroidism, depression admitted for acute appendicitis. Active #. Acute appendicitis, status post laparoscopic ileocolic resection with extracorporeal anastomosis postop day 4 IV Zosyn 3.75 g 3 times daily, day 5 Consider one week of oral antibiotics Surgery following Infectious disease following #. Acute blood loss anemia, which is an expected result of surgery Transfuse if hemoglobin < 7 Resolved #. Sepsis, present on admission Chronic #. Hypertension Atenolol 25 mg PO nightly #. Hyperlipidemia Lipitor 10 mg PO nightly #. Diabetes mellitus Accu-Cheks every 6 hours Insulin sliding scale Hypoglycemia precautions #. Hypothyroidism Synthroid 112 mcg PO daily #. Depression Paxil 20 mg PO daily F: No restrictions E: Replete if needed N: Clear liquids A: Ambulatory DVT prophylaxis: Subcutaneous heparin Code status: Full code Anticipated discharge place: Home Patient is medically optimized for discharge. I have seen and evaluated the patient today. Discussed with the resident and agree with the residents finding and plan as documented in the resident's note. Changes highlighted in blue font. Objective - Vital Signs Vital signs: Vital Signs Temp 97.4 F L 05/16/24 01:08 Pulse 58 L 05/16/24 01:08 Resp 17 05/16/24 01:08 BP 160/70 05/16/24 03:39 Pulse Ox 97 05/16/24 01:08 FiO2 Intake & Output 05/15/24 05/16/24 05/16/24 18:59 06:59 18:59 Output Total 960 30 Balance -960 -30 Output: Drainage 60 30 Right Lower Abdomen 60 30 Urine 900 Other: Voiding Method Toilet Toilet # Voids 3 1 - Labs CBC & Chem 7: 05/16/24 04:20 05/16/24 04:20 Labs: Abnormal Lab Results - Last 24 Hours (Table) 05/15/24 05/15/24 05/15/24 Range/Units 09:28 09:28 11:28 RBC 2.95 L (3.80-5.40) m/uL Hgb 9.3 L (11.4-16.0) gm/dL Hct 28.2 L (34.0-46.0) % Chloride 110 H (98-107) mmol/L Glucose 137 H (74-99) mg/dL POC Glucose (mg/dL) 114 H (70-110) mg/dL 05/15/24 05/16/24 05/16/24 Range/Units 16:18 01:06 06:31 RBC (3.80-5.40) m/uL Hgb (11.4-16.0) gm/dL Hct (34.0-46.0) % Chloride (98-107) mmol/L Glucose (74-99) mg/dL POC Glucose (mg/dL) 133 H 137 H 124 H (70-110) mg/dL
== END 2024-05-16 16:44 | disposition home or self-care (01) | DRG 853 ==
LOC: EC 16:43 → 4SSUR 19:28 → 6NMEDSUR 20:28 → 4SSUR 05-12 07:52
PROVIDERS: ADMIT Surgery; ATTEND Surgery
PROC: 0DBF4ZZ Excision of Right Large Intestine, Percutaneous Endoscopic Approach (ICD-10-PCS; principal; 2024-05-12)
DX: A41.9 Sepsis, unspecified organism (principal); K35.33 Acute appendicitis with perforation, localized peritonitis, and gangrene, with abscess; D62 Acute posthemorrhagic anemia; E03.9 Hypothyroidism, unspecified; E11.9 Type 2 diabetes mellitus without complications; E78.5 Hyperlipidemia, unspecified; F17.200 Nicotine dependence, unspecified, uncomplicated; F32.A Depression, unspecified; F41.9 Anxiety disorder, unspecified; F17.210 Nicotine dependence, cigarettes, uncomplicated; I10 Essential (primary) hypertension; Z79.84 Long term (current) use of oral hypoglycemic drugs; Z85.3 Personal history of malignant neoplasm of breast; Z90.11 Acquired absence of right breast and nipple; Z79.890 Hormone replacement therapy; Z91.048 Other nonmedicinal substance allergy status
CPT/HCPCS: 36410; 36415; 71045; 74177; 76937; 80048; 80053; 81001; 82150; 83605; 83690; 83735; 85025; 85027; 85610; 85730; 88307; 96361; 96365; 96375; 96376; 99285